=== PATIENT | female | born 1960 | race Caucasian/White ===

== ENCOUNTER 2020-08-23 04:14 | Inpatient (IN) | payer MEDICARE, MEDICAID ==
[2020-08-23] VITALS (426 sets, daily range): BP systolic 131–146; BP diastolic 85–111; PULSE 78–84; TEMP 97.2–98.1; O2SAT 89–100
[~2020-08-23] VITALS: Ht 165.1 cm; Wt 66.5 kg
[~2020-08-23 04:14] MED LIST: LAMICTAL 25MG T25 MG; PAXIL 10MG10 MG; PREDNISONE20 MG PO; PROAIR HFA0.09 MG/AC IH; TOPROL XL 25MG25 MG
[2020-08-23 05:46] LABS: BASO # 0.1 (0.0-0.2); BASO % 0.7 % (0.0-2.0); EOS # 0.3 (0.0-0.7); EOS % 2.3 % (0-4.0); GRAN # 7.8 (1.4-6.5); GRAN % 63.6 % (42.2-75.2); HEMATOCRIT 37.4 % (37.0-47.0); HEMOGLOBIN 12.4 g/dl (12.5-16.0); LYMPH % 24.2 % (20.0-51.0); MEAN CELL VOLUME 92 fl (80.0-100.0); MEAN CORPUSCULAR HEMOGLOBIN 30 pg (27.0-31.0); MEAN CORPUSCULAR HGB CONC 33 g/dl (33.0-37.0); MEAN PLATELET VOLUME 10.4 fl (7.4-10.4); MONO # 1.1 (0.1-0.6); MONO % 8.9 % (1.7-9.3); PLATELET COUNT 306 K/mm3 (130-400); RED BLOOD COUNT 4.08 M/mm3 (4.10-5.30)
[2020-08-23 05:55] LABS: ALBUMIN 3.9 gm/dL (3.5-5.0); BILIRUBIN,TOTAL 0.4 mg/dL (0.0-1.0); CALCIUM 9.4 mg/dL (8.4-10.2); CREATININE, serum 0.89 (0.52-1.25); POTASSIUM 3.7 mmol/L (3.4-5.0); TOTAL PROTEIN 6.6 gm/dL (6.4-8.2)
[2020-08-23 06:14] LABS: COLLECTION METHOD CLEAN CATCH
[2020-08-23 06:15] LABS: ACETAMINOPHEN < 10 ug/mL (10-30); SALICYLATE < 1.0 mg/dL; TROPONIN-I 0.062 ng/mL (0.000-0.035)
[2020-08-23 06:29] LABS: MUCOUS Present /lpf; PH 5 (5-8); URINE APPEARANCE Hazy; URINE BACTERIA None Seen /hpf; URINE BILIRUBIN Negative (NEGATIVE); URINE BLOOD Negative (NEGATIVE); URINE COLOR Yellow; URINE GLUCOSE Negative (NEGATIVE); URINE KETONE Negative (NEGATIVE); URINE LEUKOCYTE ESTERASE Trace (NEGATIVE); URINE NITRATE Negative (NEGATIVE); URINE PROTEIN(semi-quant) Negative (NEGATIVE); URINE RBC 0-2 /hpf; URINE UROBILINOGEN Negative (NEGATIVE); URINE WBC 20-50 /hpf
[2020-08-23 06:34] LABS: TRICYCLIC ANTIDEPRESS URINE NEGATIVE
[2020-08-23 11:38] LABS: ARTERIAL BLD GAS O2 SATURATION 98.1 % (92-100); ARTERIAL BLOOD GAS BASE EXCESS 6.9 (-2-2); ARTERIAL BLOOD GAS HCO3 31.6 meq/L (22-26); ARTERIAL BLOOD GAS PCO2 45.5 mmHg (35-45); ARTERIAL BLOOD GAS PO2 105.1 mmHg (80-100); ARTERIAL BLOOD GAS pH 7.46 (7.35-7.45)
--- NOTE | 2020-08-23 16:22 | NUR ---
marshmallow machine worker contacted patient's son, Fahad Gilbert #[phone] and confirmed that patient is and that she has 3 adult children. Fahad states he has a sister, Lester, and another sister, Brittany (that he hasn't spoken to in 13 years). Fahad states that he doesn't know where Brittany is or what her last name is. Worker attempted to contact Brittany, however, phone number did not work. Worker provided legal next of kin information, identifying patient's adult children as decisions makers, when patient cannot speak for herself. Patient is currently on a ventilator and cannot speak for herself. Fahad advised that he and his sisters are estranged from patient and that patient's brother, Chester Urias [phone] lives with patient and provides for her care. Worker explained that if patient's children do not want to be the decision makers, then a court process to appoint a guardian will need to be completed with payment from patient. Fahad states that he will reach out to his sister, Rebecca and Chester and discuss the above information. Worker provided emotional support and stressed that we want to support patient's family members and guide them through this difficult time. Worker will reach out to Fahad in the am on 08/24/2020 to discuss what direction the children want to proceed with. Fahad verbalized understanding that he and his sisters are currently decision makers.
--- NOTE | 2020-08-23 17:00 | NUR ---
None at this time, AIVS here for PICC placement
[2020-08-23 18:23] LABS: TROPONIN-I 0.244 ng/mL (0.000-0.035)
[2020-08-23] MEDS ORDERED: COMBIRESP IH (22:00)
[2020-08-23] MEDS ORDERED: ASPIRIN 81M81 MG/TA2 PO (22:01)
[2020-08-23] MEDS ORDERED: PROAIR HFA0.09 MG/AC IH (22:01)
[2020-08-23] MEDS ORDERED: PRILOSEC 20MG20 MG PO (22:01)
[2020-08-23] MEDS ORDERED: DINO-LIFE1 CTB PO (22:02)
[2020-08-23] MEDS ORDERED: 00186-0370-20 IH (22:03)
[2020-08-23] MEDS ORDERED: KAPSPARGO SPRIN25 MG PO (22:03)
[2020-08-23] MEDS ORDERED: DESYREL 100MG100 MG PO (22:03)
[2020-08-23] MEDS ORDERED: PAXIL 20MG20 MG PO (22:04)
[2020-08-23] MEDS ORDERED: ATARAX 25MG25 MG/TAB PO (22:04)
[2020-08-23] MEDS ORDERED: PAXIL40 MG PO (22:04)
[2020-08-23] MEDS ORDERED: LYRICA200 MG PO (22:04)
[2020-08-23] MEDS ORDERED: PLETAL 100MG T100 MG PO (22:05)
[2020-08-23] MEDS ORDERED: VIMPAT100 MG PO (22:05)
[2020-08-23] MEDS ORDERED: SEROQUEL 1100 MG/TAB PO (22:05)
[2020-08-24] VITALS (600 sets, daily range): BP systolic 123–151; BP diastolic 7–100; PULSE 72–103; TEMP 97.2–98.6; O2SAT 89–100
[2020-08-24 04:34] LABS: ARTERIAL BLD GAS O2 SATURATION 95.9 % (92-100); ARTERIAL BLD GAS TCO2 CT 30.2; ARTERIAL BLOOD GAS BASE EXCESS 4.7 (-2-2); ARTERIAL BLOOD GAS HCO3 28.9 meq/L (22-26); ARTERIAL BLOOD GAS PCO2 41.2 mmHg (35-45); ARTERIAL BLOOD GAS pH 7.46 (7.35-7.45)
[2020-08-24 05:23] LABS: BASO % 0.1 % (0.0-2.0); GRAN # 9.4 (1.4-6.5); GRAN % 84.9 % (42.2-75.2); HEMOGLOBIN 12.1 g/dl (12.5-16.0); LYMPH % 9.1 % (20.0-51.0); MEAN CELL VOLUME 89 fl (80.0-100.0); MEAN CORPUSCULAR HEMOGLOBIN 31 pg (27.0-31.0); MEAN CORPUSCULAR HGB CONC 34 g/dl (33.0-37.0); MEAN PLATELET VOLUME 10.4 fl (7.4-10.4); MONO # 0.6 (0.1-0.6); MONO % 5.4 % (1.7-9.3); PLATELET COUNT 268 K/mm3 (130-400); RED BLOOD COUNT 3.97 M/mm3 (4.10-5.30); REDCELL DISTRIBUTION WIDTH-CV 11.9 % (11.5-14.5)
[2020-08-24 05:28] LABS: HEMATOCRIT 35.2 % (37.0-47.0)
[2020-08-24 05:35] LABS: ALBUMIN 3.6 gm/dL (3.5-5.0); BILIRUBIN,TOTAL 0.3 mg/dL (0.0-1.0); CALCIUM 8.8 mg/dL (8.4-10.2); CREATININE, serum 0.72 (0.52-1.25); TOTAL PROTEIN 6.2 gm/dL (6.4-8.2)
[2020-08-24 05:36] LABS: POTASSIUM 2.9 mmol/L (3.4-5.0)
[2020-08-24 05:49] LABS: TROPONIN-I 0.107 ng/mL (0.000-0.035)
[2020-08-24 06:04] LABS: TSH w REFLEX 0.015 uIU/mL (0.465-4.680)
--- NOTE | 2020-08-24 09:30 | NUR ---
at bedside. added aspirin and metoprolol. No other interventions at this time.
--- NOTE | 2020-08-24 09:30 | NUR ---
at bedside. added more potassium and ordered replacement protocol.
--- NOTE | 2020-08-24 10:00 | NUR ---
Patient put on CPAP trial and sedation cut in half per Dr.Rich duffy.
[2020-08-24 11:26] LABS: ARTERIAL BLD GAS TCO2 CT 27.2; ARTERIAL BLOOD GAS BASE EXCESS 3.6 (-2-2); ARTERIAL BLOOD GAS HCO3 26.2 meq/L (22-26); ARTERIAL BLOOD GAS pH 7.52 (7.35-7.45)
--- NOTE | 2020-08-24 11:28 | NUR ---
ABG was good and patient tolerated CPAP trial. said to extubate. Patient was extubated and NG was removed. Patient placed on 3L NC and satting 97%. Patient is alert but is not oriented what so ever anf will not follow commands. She is restless and agitated, with incomprehensible speech.
--- NOTE | 2020-08-24 14:26 | NUR ---
social service worker contacted son, Fahad, and provided updates and that physician would attempt to call with updates as well. Fahad was appreciative of the call.
--- NOTE | 2020-08-24 19:56 | NUR ---
Received report from ANN Silva. All medications verified and all questions answered. Will resume care at this time.
--- NOTE | 2020-08-24 21:00 | NUR ---
Nurse notified by chargeMiriam RN, that patient was completly naked and sitting up in bed pulling at PICC line and peripheral lines. Patient became combative and began to kick, punch and yell at nurses. Patient is confused and unable to follow commands. Patient speech was clear but yelling out unintelligible phrases that do not relate to situation. hematologist oncologist contacted [facility] who placed orders for a precedex gtt to be started. hematologist oncologist then contacted warehouse operator and Dr. De Leon to confirm precedex gtt.
[2020-08-24 22:31] LABS: ARTERIAL BLD GAS O2 SATURATION 93.2 % (92-100); ARTERIAL BLD GAS TCO2 CT 30.1; ARTERIAL BLOOD GAS BASE EXCESS 5.2 (-2-2); ARTERIAL BLOOD GAS HCO3 28.9 meq/L (22-26); ARTERIAL BLOOD GAS PCO2 39.2 mmHg (35-45); ARTERIAL BLOOD GAS PO2 62.8 mmHg (80-100); ARTERIAL BLOOD GAS pH 7.49 (7.35-7.45)
[2020-08-25] VITALS (698 sets, daily range): BP systolic 122–175; BP diastolic 68–107; PULSE 62–83; TEMP 97.4–98.1; O2SAT 76–100
[2020-08-25 05:24] LABS: GRAN # 10.8 (1.4-6.5); GRAN % 85.9 % (42.2-75.2); LYMPH # 1.2 (1.2-3.4); LYMPH % 9.3 % (20.0-51.0); MEAN CELL VOLUME 90 fl (80.0-100.0); MEAN CORPUSCULAR HEMOGLOBIN 30 pg (27.0-31.0); MEAN CORPUSCULAR HGB CONC 33 g/dl (33.0-37.0); MEAN PLATELET VOLUME 10.4 fl (7.4-10.4); MONO # 0.5 (0.1-0.6); MONO % 4.2 % (1.7-9.3); PLATELET COUNT 250 K/mm3 (130-400); RED BLOOD COUNT 3.73 M/mm3 (4.10-5.30); REDCELL DISTRIBUTION WIDTH-CV 12.3 % (11.5-14.5)
[2020-08-25 05:33] LABS: HEMATOCRIT 33.6 % (37.0-47.0)
[2020-08-25 05:37] LABS: CALCIUM 9.2 mg/dL (8.4-10.2); CREATININE, serum 0.74 (0.52-1.25); POTASSIUM 4.1 mmol/L (3.4-5.0)
--- NOTE | 2020-08-25 05:39 | NUR ---
Attempted to weigh patient via bedscale in room. Bedscale not working. Will pass on to day shift.
[2020-08-25] MEDS ORDERED: LAMICTAL 100MG100 MG PO (10:44)
--- NOTE | 2020-08-25 11:52 | NUR ---
The patient has been extubated. She remains confused and agitated. ICU Director reports that they have not been able to get in contact with the patient's son, Fahad. SW contacted Fhaad (ph#[phone]). Fahad reports that him and his siblings are still agreeable to be the patient's decision makers and he was agreeable for SW to transfer the call to the ICU to talk to the patient's RN. ERMA did this and updated ICU Director.
--- NOTE | 2020-08-25 20:00 | NUR ---
PATIENT WILL SCREAM FOR HELP OR MOM, ASKED ABOUT GIVING HER ORAL MED AND SHE TOOK ORALLY WITH SMALL PROTION OF WATER, CIWA SCORE 4 TO 6 ADMINISTRATION OF ATIVAN REGULAR
[2020-08-26] VITALS (647 sets, daily range): BP systolic 115–168; BP diastolic 70–113; PULSE 60–91; TEMP 97.5–98.5; O2SAT 55–100
[2020-08-26 05:23] LABS: BASO % 0.1 % (0.0-2.0); EOS % 0.1 % (0-4.0); GRAN # 6.2 (1.4-6.5); HEMOGLOBIN 11.3 g/dl (12.5-16.0); LYMPH # 2.9 (1.2-3.4); LYMPH % 28.2 % (20.0-51.0); MEAN CELL VOLUME 89 fl (80.0-100.0); MEAN CORPUSCULAR HEMOGLOBIN 30 pg (27.0-31.0); MEAN CORPUSCULAR HGB CONC 34 g/dl (33.0-37.0); MEAN PLATELET VOLUME 10.4 fl (7.4-10.4); MONO # 1.1 (0.1-0.6); MONO % 10.4 % (1.7-9.3); PLATELET COUNT 218 K/mm3 (130-400); RED BLOOD COUNT 3.81 M/mm3 (4.10-5.30)
[2020-08-26 05:29] LABS: HEMATOCRIT 33.7 % (37.0-47.0)
[2020-08-26 05:35] LABS: CALCIUM 8.9 mg/dL (8.4-10.2); CREATININE, serum 0.75 (0.52-1.25); POTASSIUM 3.7 mmol/L (3.4-5.0)
--- NOTE | 2020-08-26 10:50 | NUR ---
1025- PT is very agitated, crying out, pushing staff and unable to follow commands. 1030- Hospitalist notified. 1032- PT lays down and is no longer verbal. PTs pupils are no longer reactive. PTs eyes are moving back and forth. Service Representative bedside. PTs O2 saturation is in the 70s. Oxymask is placed and RT called. Orders received for intubation. [facility] notified. 1037-PT given 2mg ativan. RT bedside 1043- Second dose of ativan given. DRYWALL BOARDHANGER bedside. 1044- Time out for inutbation. Medications given per DRYWALL BOARDHANGER. Please see eMAR. 1046- ET-tube in place. Color change noted. Lung sounds auscultated bilaterally. PT O2 sat at 98%.
--- NOTE | 2020-08-26 11:48 | NUR ---
Patient intubated and paralytic used. EEG will be completed Sunday. Shekhar Malcolm, INSTRUCTIONAL SYSTEMS DESIGN CONSULTANT
[2020-08-26 11:55] LABS: ARTERIAL BLD GAS O2 SATURATION 98.7 % (92-100); ARTERIAL BLD GAS TCO2 CT 24.2; ARTERIAL BLOOD GAS BASE EXCESS -1.7 (-2-2); ARTERIAL BLOOD GAS PCO2 39.1 mmHg (35-45); ARTERIAL BLOOD GAS PO2 160.4 mmHg (80-100); ARTERIAL BLOOD GAS pH 7.39 (7.35-7.45)
[2020-08-27] VITALS (546 sets, daily range): BP systolic 87–150; BP diastolic 53–90; PULSE 67–82; TEMP 97.3–98.3; O2SAT 76–100
[2020-08-27 06:00] LABS: ARTERIAL BLD GAS O2 SATURATION 98.3 % (92-100); ARTERIAL BLD GAS TCO2 CT 25.6; ARTERIAL BLOOD GAS BASE EXCESS 0.8 (-2-2); ARTERIAL BLOOD GAS HCO3 24.5 meq/L (22-26); ARTERIAL BLOOD GAS PCO2 36.2 mmHg (35-45); ARTERIAL BLOOD GAS PO2 110.4 mmHg (80-100); ARTERIAL BLOOD GAS pH 7.45 (7.35-7.45)
--- NOTE | 2020-08-27 08:11 | NUR ---
PT ATTEMPTING TO CRAWL OUT OF BED AND SELF-EXTUBATE, ON CURRENT DOSES.
[2020-08-27 08:44] LABS: BASO % 0.1 % (0.0-2.0); GRAN # 6.1 (1.4-6.5); GRAN % 83.8 % (42.2-75.2); HEMOGLOBIN 10.7 g/dl (12.5-16.0); LYMPH # 0.8 (1.2-3.4); LYMPH % 11.2 % (20.0-51.0); MEAN CELL VOLUME 89 fl (80.0-100.0); MEAN CORPUSCULAR HEMOGLOBIN 31 pg (27.0-31.0); MEAN CORPUSCULAR HGB CONC 35 g/dl (33.0-37.0); MEAN PLATELET VOLUME 10.6 fl (7.4-10.4); MONO # 0.3 (0.1-0.6); MONO % 4.5 % (1.7-9.3); PLATELET COUNT 203 K/mm3 (130-400); RED BLOOD COUNT 3.41 M/mm3 (4.10-5.30); REDCELL DISTRIBUTION WIDTH-CV 11.9 % (11.5-14.5)
[2020-08-27 08:45] LABS: HEMATOCRIT 30.5 % (37.0-47.0)
[2020-08-27 08:56] LABS: CALCIUM 8.2 mg/dL (8.4-10.2); CREATININE, serum 0.68 (0.52-1.25); POTASSIUM 3.6 mmol/L (3.4-5.0)
[2020-08-28] VITALS (886 sets, daily range): BP systolic 126–192; BP diastolic 76–110; PULSE 64–87; TEMP 97.5–98.3; O2SAT 84–100
[2020-08-28 05:38] LABS: ARTERIAL BLD GAS O2 SATURATION 95.4 % (92-100); ARTERIAL BLD GAS TCO2 CT 24.3; ARTERIAL BLOOD GAS BASE EXCESS -1.4 (-2-2); ARTERIAL BLOOD GAS HCO3 23.1 meq/L (22-26); ARTERIAL BLOOD GAS PCO2 38.2 mmHg (35-45); ARTERIAL BLOOD GAS PO2 81.2 mmHg (80-100)
[2020-08-28 06:40] LABS: GRAN % 83.9 % (42.2-75.2); HEMATOCRIT 31.5 % (37.0-47.0); HEMOGLOBIN 10.4 g/dl (12.5-16.0); LYMPH # 0.6 (1.2-3.4); LYMPH % 10.7 % (20.0-51.0); MEAN CELL VOLUME 90 fl (80.0-100.0); MEAN CORPUSCULAR HEMOGLOBIN 30 pg (27.0-31.0); MEAN CORPUSCULAR HGB CONC 33 g/dl (33.0-37.0); MEAN PLATELET VOLUME 10.5 fl (7.4-10.4); MONO # 0.3 (0.1-0.6); MONO % 5.1 % (1.7-9.3); PLATELET COUNT 199 K/mm3 (130-400); RED BLOOD COUNT 3.49 M/mm3 (4.10-5.30); REDCELL DISTRIBUTION WIDTH-CV 12.2 % (11.5-14.5)
[2020-08-28 06:49] LABS: CALCIUM 8.4 mg/dL (8.4-10.2); CREATININE, serum 0.81 (0.52-1.25)
--- NOTE | 2020-08-28 09:24 | NUR ---
Increased patients tube feed rate to 30ml.
--- NOTE | 2020-08-28 10:25 | NUR ---
Sedation cut in half for CPAP trial. While on CPAP trial patient kept having apneic spells so vent mode was turned back to AC and sedation was turned all the way off.
--- NOTE | 2020-08-28 10:45 | NUR ---
PAtient back on CPAP mode and tolerating well. will draw ABG at noon
[2020-08-28 12:10] LABS: ARTERIAL BLD GAS O2 SATURATION 95.5 % (92-100); ARTERIAL BLOOD GAS BASE EXCESS -3.8 (-2-2); ARTERIAL BLOOD GAS HCO3 21.7 meq/L (22-26); ARTERIAL BLOOD GAS PCO2 41.1 mmHg (35-45); ARTERIAL BLOOD GAS PO2 84.8 mmHg (80-100); ARTERIAL BLOOD GAS pH 7.34 (7.35-7.45)
--- NOTE | 2020-08-28 12:30 | NUR ---
Patient extubated per . ABG looked good. Patient put on 2L NC and satting good at 96%. restraints off and mittens were placed and patient started on precedex gtt per . Bed alarm on. Patient is not following commands but moving all around in bed.
--- NOTE | 2020-08-28 16:36 | NUR ---
Fahad, patients son, called for updates. He was updated on todays plan of care and that patient was extubated. He did not have any questions after.
--- NOTE | 2020-08-28 17:30 | NUR ---
Sedation vacation was initated by cutting precedex in half. Patient became more alert. However, patient is not oriented and or answering questions appropriately. She is not following commands. In reponse to asking if she knew where she was she said "[facility]" while yelling it. When asked what her name was she yelled "fuck you". Patient then became restless and was trying to climb out of bed so precedex was turned back up.
[2020-08-29] VITALS (653 sets, daily range): BP systolic 129–175; BP diastolic 82–108; PULSE 61–80; TEMP 97.4–98.1; O2SAT 74–100
[2020-08-29 05:32] LABS: GRAN # 7.9 (1.4-6.5); GRAN % 83.9 % (42.2-75.2); LYMPH # 0.8 (1.2-3.4); LYMPH % 8.7 % (20.0-51.0); MEAN CELL VOLUME 89 fl (80.0-100.0); MEAN CORPUSCULAR HEMOGLOBIN 30 pg (27.0-31.0); MEAN CORPUSCULAR HGB CONC 34 g/dl (33.0-37.0); MONO # 0.6 (0.1-0.6); MONO % 6.7 % (1.7-9.3); PLATELET COUNT 206 K/mm3 (130-400); RED BLOOD COUNT 3.66 M/mm3 (4.10-5.30); REDCELL DISTRIBUTION WIDTH-CV 12.1 % (11.5-14.5)
[2020-08-29 05:33] LABS: HEMATOCRIT 32.7 % (37.0-47.0)
[2020-08-29 05:46] LABS: CALCIUM 8.9 mg/dL (8.4-10.2); CREATININE, serum 0.71 (0.52-1.25); POTASSIUM 3.7 mmol/L (3.4-5.0)
--- NOTE | 2020-08-29 08:00 | NUR ---
PATIENT LYING IN BED ON PRECEDEX GTT. SHE IS OCCASIONALLY TRYING TO GET OUT OF BED AND CUSSING AT STAFF THEY TRY TO HELP HER BACK TO BED.
--- NOTE | 2020-08-29 11:00 | NUR ---
DR. RODRIGUEZ IN TO SEE PATIENT. HE ORDERS SCHEDULED HALDOL TO SEE IF WE CAN WEAN OFF THE PRECEDEX AND HELP PATIENT BE MORE AGREEABLE TO TAKE HER PO PSYCH MEDS.
--- NOTE | 2020-08-29 15:00 | NUR ---
ATTEMPTING TO WEAN PRECEDEX AFTER ADMINISTERING SCHEDULED HALDOL. PATIENT SEEMS TO BE TOLERATING IT WELL, BUT REMAINS CONFUSED AND HALLUCINATORY. BED ALARM ACTIVATED SHE IS STILL TRYING TO GET UP WITHOUT HELP.
--- NOTE | 2020-08-29 19:30 | NUR ---
Received report from ANN Lee. All medications verified and all questions answered. Patient resting in bed, all VS WNL. Will resume care at this time.
--- NOTE | 2020-08-29 22:00 | NUR ---
Spoke with Tonja Pedro, friend of patient, who called ICU nurses station and gave patient privacy code. Nurse gave update on patient status. Patient friend stated he was appreciative and would call back later tomorrow morning.
--- NOTE | 2020-08-29 22:50 | NUR ---
PATIENT IS CALM AND LAYING IN BED RESTING. VS WNL. PATIENT SLEEPS BETWEEN DISTURBANCES, BUT WAKES EASILY. PRECEDEX PUT ON STANDY.
--- NOTE | 2020-08-29 23:57 | NUR ---
Nurse heard low SPO2 alarm sounding in patient room and noticed patient had blood all over the gown and bed, patient stated "I'm not doing so hot." Nurse noted cap had come off purple port on PICC line. Nurse notified Charge, RN who helped nurse bath patient and change sheets. Nurse notified RAJESH Pinon who ordered H&H to be drawn. New cap placed on PICC line and new marimar wrap wrapped around patient arm. VS taken and WNL. Patient is alert and restless but able to follow simple commands. Patient is confused and unable to answer questions appropriately. Awaiting results on H&H.
[2020-08-30] VITALS (293 sets, daily range): BP systolic 120–178; BP diastolic 68–102; PULSE 68–93; TEMP 97.5–98.2; O2SAT 76–99
[2020-08-30 00:09] LABS: HEMATOCRIT 29.7 % (37.0-47.0)
--- NOTE | 2020-08-30 00:14 | NUR ---
Notified Kathrin, HOSPICE MUSIC THERAPIST of results of patients H&H. No new orders at this time
--- NOTE | 2020-08-30 04:27 | NUR ---
PRECEDEX GTT PLACED ON STANDBY
[2020-08-30 05:04] LABS: BASO % 0.1 % (0.0-2.0); EOS # 0.1 (0.0-0.7); EOS % 0.8 % (0-4.0); GRAN # 5.3 (1.4-6.5); GRAN % 58.2 % (42.2-75.2); LYMPH # 2.7 (1.2-3.4); LYMPH % 29.4 % (20.0-51.0); MEAN CELL VOLUME 89 fl (80.0-100.0); MEAN CORPUSCULAR HGB CONC 33 g/dl (33.0-37.0); MEAN PLATELET VOLUME 10.6 fl (7.4-10.4); MONO % 11.1 % (1.7-9.3); PLATELET COUNT 175 K/mm3 (130-400); RED BLOOD COUNT 3.36 M/mm3 (4.10-5.30); REDCELL DISTRIBUTION WIDTH-CV 12.1 % (11.5-14.5)
[2020-08-30 05:11] LABS: HEMATOCRIT 29.9 % (37.0-47.0); HEMOGLOBIN 9.9 g/dl (12.5-16.0); MEAN CORPUSCULAR HEMOGLOBIN 29 pg (27.0-31.0)
[2020-08-30 05:27] LABS: ALBUMIN 2.9 gm/dL (3.5-5.0); BILIRUBIN,TOTAL 0.9 mg/dL (0.0-1.0); CALCIUM 7.3 mg/dL (8.4-10.2); CREATININE, serum 0.65 (0.52-1.25); MAGNESIUM 1.7 mg/dL (1.6-2.3); PHOSPHOROUS 2.3 mg/dL (2.5-4.5); TOTAL PROTEIN 5.2 gm/dL (6.4-8.2)
[2020-08-30 05:34] LABS: PRE ALBUMIN 18.7 mg/dL (17.6-36.0)
[2020-08-30 05:42] LABS: POTASSIUM 2.6 mmol/L (3.4-5.0)
--- NOTE | 2020-08-30 06:00 | NUR ---
Spoke with Dr. Don in regards to patients blood glucose reading of 58 [facility] morning lab draws. A recheck via glucometer showed patients blood glucose level 91. On initial call with Dr. Don it was discussed that if BG was still low that D50 would be administered. No orders were put in for D50 and with a BG reading of 91 and the patient starting on D5NS at 100mls/hr for fluids D50 was not given.
--- NOTE | 2020-08-30 06:04 | NUR ---
Received call from Stephanie in the lab stating patient had a critcal potassium level of 2.6. Nurse called MARTHA and received orders from Dr. Street for 20MEQ of potassium to be given IV. Nurse also noted patient had a blood glucose level of 58 from 0500 morning lab draws. Nurse reassessed patients blood sugar using glucometer and blood glucose was 91.
--- NOTE | 2020-08-30 06:15 | NUR ---
Spoke with MARTHA and relayed patients accucheck blood glucose reading of 91. Received orders from Dr. Leyva to place patient on D5NS.
--- NOTE | 2020-08-30 08:00 | NUR ---
PATIENT RESTLESS AND INCONTINENT OF STOOL MULITPLE TIMES TIME MORNING. SHE NEEDS FREQUENT REORIENTATION AND REDIRECTING. PATIENT SPEAKS CLEARLY, BUT IN A CONFUSED MANNER.
--- NOTE | 2020-08-30 12:25 | NUR ---
Patient to room 313 by wheelchair from ICU. Patient assisted to the bed and repositioned for comfort. Alert, but confused and trying to get out of bed. IV CDI, fluids infusing. Vizcaino dependent drainage, clear yellow. Call light within reach, Bed alarm on door open. Call light within reach
--- NOTE | 2020-08-30 17:58 | NUR ---
Patient has been shouting out Allegra and Carebear and trying to get out of bed. Pulled stat lock to saravia x2. Mitts placed on patient to help keep saravia intact. Nursing staff reorienting patient as needed and assisting with repositioning. Saravia dependent drainage clear yellow. CMS WNL with Mitts on. Call light within reach. Bed alarm on and door open
[2020-08-30 21:09] LABS: CALCIUM 8.8 mg/dL (8.4-10.2); CREATININE, serum 0.78 (0.52-1.25); POTASSIUM 3.3 mmol/L (3.4-5.0)
--- NOTE | 2020-08-30 21:37 | NUR ---
Pt refuses full assessment of BS and SpO2
[2020-08-31] VITALS (9 sets, daily range): BP systolic 101–143; BP diastolic 60–90; PULSE 72–85; TEMP 97.3–98.7
[2020-08-31 07:56] LABS: CREATININE, serum 0.82 (0.52-1.25); MAGNESIUM 2.1 mg/dL (1.6-2.3); POTASSIUM 3.1 mmol/L (3.4-5.0)
--- NOTE | 2020-08-31 09:05 | NUR ---
(Late Entry) On 08/30/19 Liquor Runner collaborated with Hospitalist who advised patient would need rodo psych placement. SW faxed referrals to [facility], [facility], [facility], and [facility].
--- NOTE | 2020-08-31 14:09 | NUR ---
Renal Technician faxed referrals to the following rodo-psych facilites: [facility] [place], and [facility].
--- NOTE | 2020-08-31 14:12 | NUR ---
Farm Equipment Operator attempted to contact the patient's son, Fahad to introduce oneself and provide an update. This SW could not leave a message since the mailbox was full.
--- NOTE | 2020-08-31 16:00 | NUR ---
The patient's son, Fahad contacted this Robotics Testing Technician. SW provided patient update. Fahad had no questions at this time.
[2020-09-01] VITALS (7 sets, daily range): BP systolic 85–139; BP diastolic 50–88; PULSE 63–83; TEMP 97.7–98.2
--- NOTE | 2020-09-01 01:44 | NUR ---
Patient appears very confused tonight. Patient trying to get out of bed and keeps pulling her saravia catheter. PRN Ativan given at 20:03 pm for restlessness. Scheduled meds given per OCT. Meds crushed and mixed in chocolate pudding. Patient took medications without difficulty. Right upper arm PICC site has no s/s of complications. Saravia catheter draining clear yellow urine. Call light within reach. Doors left open for close monitor of behavior.
--- NOTE | 2020-09-01 07:20 | NUR ---
Patient slept well through the night. No acute distress noted. Call light within reach.
[2020-09-01 07:50] LABS: HEMATOCRIT 39.2 % (37.0-47.0); MEAN CELL VOLUME 90 fl (80.0-100.0); MEAN CORPUSCULAR HGB CONC 32 g/dl (33.0-37.0); MEAN PLATELET VOLUME 11.2 fl (7.4-10.4); RED BLOOD COUNT 4.38 M/mm3 (4.10-5.30); REDCELL DISTRIBUTION WIDTH-CV 12.3 % (11.5-14.5)
[2020-09-01 07:57] LABS: CREATININE, serum 0.93 (0.52-1.25); MAGNESIUM 2.2 mg/dL (1.6-2.3); POTASSIUM 4.6 mmol/L (3.4-5.0)
--- NOTE | 2020-09-01 07:58 | NUR ---
Patient laying in bed, can be seen moving and draping legs over the rail. Alert to name and , but confused on all other questions. VSS. IV CDI. Denies pain and discomfort. Call light within reach. Bed alarm on. Door open
[2020-09-01 08:16] LABS: MEAN CORPUSCULAR HEMOGLOBIN 29 pg (27.0-31.0)
[2020-09-01 08:18] LABS: HEMOGLOBIN 12.7 g/dl (12.5-16.0); PLATELET COUNT 320 K/mm3 (130-400)
--- NOTE | 2020-09-01 10:40 | NUR ---
Chairman & Ceo received a message from Gardenia at [facility] who advised they would have to decline referral due to medical issues.
--- NOTE | 2020-09-01 12:55 | NUR ---
Vizcaino catheter removed. Pericare provided before and after removal. Tip intact, patient tolerated well. Brief changed and patient repositioned for comfort. Patient instructed to call nursing staff when needing to void. Call light within reach. Bed alarm on
--- NOTE | 2020-09-01 13:50 | NUR ---
Denia from [facility] has declined the patient due to history of drug use. [facility] has declined due to the patient not having a designated DPOA-HC or guardian. [facility] is reviewing the referral but is requesting the patient have DPOA-HC or guardianship. Chastity with [facility] and she will have her team review the referral then inform ERMA. Chastity states the patient will need to have a DPOA-HC or guardian. ERMA contacted Justyna with the [facility] in [place]. She states they are still reviewing the referral. Supervisor Locomotive contacted the patient's son, Fahad to provide an update. He was interested in being appointed guardian and was wondering if the [facility] legal team would assign him as guardian. ERMA contacted the patient's friend, Tonja Pedro. He reports that he used to assist the patient to her appointments. He states that her PCP in [place] was Dr. Clint Lee at [facility] in [facility] #[phone]. ERMA attempted to contact Dr. Lee, left message. ERMA contacted the patient's brother, Chester to provide an update. ERMA collaborated the above information with the patient's nurse.
--- NOTE | 2020-09-01 17:32 | NUR ---
Patient has tried to get out of been throughout the shift and nursing staff reorienting the patient. Patient compliant and listens, then will try and get out of bed again. Alert to name, and confused. VSS. IV CDI. Patient assisted with eating meals. Call light within reach. Bed alarm on
--- NOTE | 2020-09-01 18:15 | NUR ---
Bladder scanned patient 439ml in the bladder. Called Mara MENA, and ordered saravia to be placed back in.
--- NOTE | 2020-09-01 18:29 | NUR ---
Vizcaino placed, 10 ml water in balloon. Pericare provided before and after insertion. Brief placed on the patient. Patient repositioned for comfort. Call light within reach. Bed alarm on. Door open
--- NOTE | 2020-09-02 01:40 | NUR ---
Patient resting in bed with eyes closed. Patient opens eyes to verbal stimulation. Denies any pain or discomfort. Denies SOB or dyspnea. Vizcaino catheter in place and draining clear yellow urine. Right upper arm PICC site has no s/s of complications. Scheduled meds given per OCT. Patient took medications without difficulty. Call light within reach. Patient denies any needs at this time.
[2020-09-02 03:21] VITALS: BP 90/54; PULSE 67; TEMP 97.8
--- NOTE | 2020-09-02 05:53 | NUR ---
Patient slept well through the night. Awake at 05:30 am and appears confused. Moving around her arms in the air, patient states," I am driving the car." Call light within reach.
[2020-09-02 07:18] VITALS: BP 109/66; PULSE 80; TEMP 98.2
[2020-09-02 07:55] LABS: HEMATOCRIT 37.4 % (37.0-47.0); MEAN CELL VOLUME 92 fl (80.0-100.0); MEAN CORPUSCULAR HEMOGLOBIN 30 pg (27.0-31.0); MEAN CORPUSCULAR HGB CONC 32 g/dl (33.0-37.0); MEAN PLATELET VOLUME 11.5 fl (7.4-10.4); PLATELET COUNT 286 K/mm3 (130-400); RED BLOOD COUNT 4.05 M/mm3 (4.10-5.30); REDCELL DISTRIBUTION WIDTH-CV 12.5 % (11.5-14.5)
[2020-09-02 08:08] LABS: CALCIUM 9.2 mg/dL (8.4-10.2); CREATININE, serum 1.15 (0.52-1.25); POTASSIUM 3.6 mmol/L (3.4-5.0)
--- NOTE | 2020-09-02 09:22 | NUR ---
Pt assessment complete. Pt is sitting up in bed upon entry, she is alert but oriented to self only. She denies pain. She answers questions appropriately, but does occasionally have confusing speech that is irrelevant to situation. No SOB, currently on RA. Herve FIELD. Pt assisted up to the chair this morning, she states she is tired of laying in bed.
--- NOTE | 2020-09-02 10:01 | NUR ---
Pathologist Assistant staffed with the patient's nurse regarding the patient's mental status. She states she is not completely oriented. ERMA met with the patient. The patient was able to answer her name. When asked if she had any children she stated "no." ERMA then asked if she had a son named Fahad, she answered "yes." SW asked the patient if she understood what a durable power of compliance attorney for healthcare was used for. The patient answered, "does it have candy." ERMA contacted Dr. Uli Rice regarding the patient and a screen for compentency. Dr. Rice was with at client at this time, left message. ERMA collaborated the above the team.
[2020-09-02 11:05] VITALS: BP 115/61; PULSE 71; TEMP 98.2
--- NOTE | 2020-09-02 14:49 | NUR ---
Vizcaino catheter removed at this time. Balloon intact. Pt continues to have confused speech, words are comprehendable but sentances do not make sense. Fall precautions in place.
--- NOTE | 2020-09-02 16:01 | NUR ---
Advertising Internship contacted the patient's son, Fahad to discuss the guardianship. Fahad is agreeable to guardianship and conservatorship for the patient. SW contacted the patient's friend, Tonja Pedro regarding DPOA-HC. Tonja states that he and the patient did discussed completing DPOA-HC, but never completed any forms. The legal team to get involved to start guardianship paperwork. SW gave a blank Report of Examination and Evaluation to hospitalist to complete. Puja from Dr. Mart's office contacted this SW. Dr. Mart will be combination welder apprentice this Sunday, 09/04. A new referral to be sent. ERMA collaborated the above information with the patient's nurse.
--- NOTE | 2020-09-02 18:58 | NUR ---
Pt continued to be confused and impulsive. Pleasant and not combative. Unable to follow commands or perform ADL's independently. Fall precautions in place.
[2020-09-02 20:01] VITALS: BP 101/62; PULSE 66; TEMP 98.6
[2020-09-02 23:33] VITALS: BP 92/51; PULSE 83; TEMP 98.1
--- NOTE | 2020-09-03 02:03 | NUR ---
Patient laying in bed resting upon enter the room. Patient opens eyes upon calling her name. Patient confused and not oriented. No s/s pain, SOB or dyspnea noted. Right upper arm PICC site has no s/s of complications. Scheduled meds given per OCT. Crushed meds in applesauce and offered. Patient took medications without difficulty. Call light within reach. Will continue to monitor.
[2020-09-03 05:18] VITALS: BP 98/63; PULSE 73; TEMP 98
--- NOTE | 2020-09-03 06:33 | NUR ---
Patient slept well throughout the night. Brief dry and clean. Bladder scan done this morning with 306ml urine residual noted. No acute distress noted. Will give report to day shift nurse.
[2020-09-03 07:46] VITALS: BP 100/54; PULSE 76; TEMP 97.7
--- NOTE | 2020-09-03 10:11 | NUR ---
Assessment complete. Patient attempting to get out of bed at time of assessment stating "I need to go have a smoke". After reorienting pt multiple times she became frustrated and angry and stated she was going to hit me if I did not let her go smoke. PRN ativan was administered to the patient at this time. Will continue to monitor. Fall precautions are in place. Call light is in reach.
--- NOTE | 2020-09-03 11:09 | NUR ---
On 09/02 referrals were faxed to [facility], [facility], [facility], [facility] and to [facility] reports they cannot accept the patient. Sabine from [facility] reports they cannot meet the patient's needs.
[2020-09-03 12:00] VITALS: BP 101/66; PULSE 78; TEMP 97.9
--- NOTE | 2020-09-03 16:49 | NUR ---
Retort Press Operator completed the guardianship questionnaire and emailed it to Mr. Mendez and Mr. Mohr. SW will send the report of examination and evaluation as soon as it is completed by hospitalist. The patient's son, Fahad contacted this Retort Press Operator. He inquired about sending referrals to facilities near his home in [place], [place]. SW faxed referrals to [facility] in [place] and to [facility] in [place]. ERMA contacted both facilities to inform them of the referrals.
--- NOTE | 2020-09-03 18:21 | NUR ---
Patient was not pleasant today despite reorientation and repositioning multiple times through the day. She would become angry when requested to stay in bed to make sure she did not fall. PRN ativan was given twice. Patient slept on an off. At end of shift she became combative and continued to be verbally agressive. Continuing to monitor. Call light is in reach.
--- NOTE | 2020-09-03 20:00 | NUR ---
Report received, assumed care for fast food shift supervisor. Assessment complete. A&O to self only-very confused converstaion-talking to people not in room. No s/s of pain or discomfort. HS meds given crushed in apple sauce-tolerated well. Plan of care discussed for this shift to include HS meds/calling for questions/concerns. Does not comprehend but call light in in reach and bed alarm is on. PICC to right upper arm flushes without difficulty. Call light in reach. Will monitor.
--- NOTE | 2020-09-03 22:00 | NUR ---
Patient very confused yelling out and talking to people who are not in the room. Is very combative and tryign to climb over bedrails. Ativan given slow IV push per order. Will monitor.
[2020-09-04 00:58] VITALS: BP 110/68; PULSE 62; TEMP 97.8
[2020-09-04 04:41] VITALS: BP 104/58; PULSE 68; TEMP 97.8
--- NOTE | 2020-09-04 04:57 | NUR ---
Rested better later this shift. Did receive one dose of ativan at 2200 due to agitation/combative with staff. Tolerated HS meds crushed in applesauce. Was A&O to self-very confused converstaion-at times speaking to people not there and picking things out of the air. Was repositioned [id number] of urine-bed bath given by PCT. No current s/s of distress noted. Call light in reach/bed alarm on. Will monitor.
[2020-09-04 08:00] VITALS: BP 121/79; PULSE 88; TEMP 98
--- NOTE | 2020-09-04 08:19 | NUR ---
Patient trying to get out of bed, nurse in the room to reorient the patient and to reposition in bed. Confused and not A&O. VSS. IV CDI. Patient incontinent of urine, nurse changed the patient. No further needs expressed from the patient. Call light within reach. Bed alarm on. Door open
[2020-09-04 08:54] LABS: CALCIUM 9.7 mg/dL (8.4-10.2); CREATININE, serum 1.11 (0.52-1.25); MAGNESIUM 2.4 mg/dL (1.6-2.3)
[2020-09-04 12:00] VITALS: BP 92/70; PULSE 86; TEMP 97.8
[2020-09-04 16:00] VITALS: BP 93/66; PULSE 80; TEMP 98.4
--- NOTE | 2020-09-04 17:32 | NUR ---
Patient had an uneventful day. Tried to get out of bed several times, nursing staff reorienting the patient. Patient spent most of the day resting. Nursing staff assisting with feeding and repositioning as needed. Confused today and not A&O. VSS. IV CDI. Call light within reach. Bed alarm on and door left open
--- NOTE | 2020-09-04 20:12 | NUR ---
Report received, assumed care for oyster shipper. Assessment complete. VS stable. Confused conversation. Responds to name but talks to people who are not present. HS meds given crushed in pudding. Calm this evening compared to earlier in shift. Plan of care discussed but does not comprehend. Repositioned in bed with pillow support to right side. HOB elevated 30 degrees. Samantha care complete-incontinent of urine. No s/s of distress noted. Call light in reach/bed alarm on. Will monitor.
[2020-09-04 20:19] VITALS: BP 97/64; PULSE 72; TEMP 98.1
--- NOTE | 2020-09-04 23:44 | NUR ---
Has become very agitated and combative with staff-cursing and trying to hit. Ativan given per dr order. Repositioned in bed with pillow support to left side. Call light in reach/bed alarm on. Will monitor.
[2020-09-05 00:53] VITALS: BP 98/68; TEMP 98.2
[2020-09-05 04:34] VITALS: BP 91/67; PULSE 72; TEMP 97.8
--- NOTE | 2020-09-05 05:19 | NUR ---
Slept most of this shift. Did get combative/agitated x1-received ativan at this time. Repositioned at this time-incontinent of urine-romeo care provided. No s/s of pain noted. VS remained stable. Tolerated HS meds crushed in pudding. Attempt made at beginning of shift to feed dinner tray. Ate approx 25% prior to spitting food out. Encouraged fluid intake. Call light in reach/bed alarm on. Will monitor.
[2020-09-05 07:26] VITALS: BP 91/75; PULSE 74; TEMP 98.4
--- NOTE | 2020-09-05 08:00 | NUR ---
Patient sleeping, easily awakened with verbal command. Alert to name and confused. Cannot keep eyes open and refusing to eat. VSS. IV CDI. Patient incontinent of urine, nurse assisted with changing the patient and reposition for comfort. Call light within reach. Bed alarm on and door left open
[2020-09-05 12:00] VITALS: BP 116/63; PULSE 97; TEMP 97.8
[2020-09-05 12:08] LABS: ARTERIAL BLD GAS O2 SATURATION 93.3 % (92-100); ARTERIAL BLD GAS TCO2 CT 27.5; ARTERIAL BLOOD GAS BASE EXCESS 0.8 (-2-2); ARTERIAL BLOOD GAS HCO3 26.1 meq/L (22-26); ARTERIAL BLOOD GAS PCO2 44.3 mmHg (35-45); ARTERIAL BLOOD GAS PO2 69.4 mmHg (80-100); ARTERIAL BLOOD GAS pH 7.39 (7.35-7.45)
[2020-09-05 15:18] LABS: ALBUMIN 3.8 gm/dL (3.5-5.0); BILIRUBIN,TOTAL 0.6 mg/dL (0.0-1.0); CALCIUM 9.4 mg/dL (8.4-10.2); CREATININE, serum 2.1 (0.52-1.25); POTASSIUM 4.5 mmol/L (3.4-5.0); TOTAL PROTEIN 6.7 gm/dL (6.4-8.2)
[2020-09-05 15:25] LABS: BASO # 0.1 (0.0-0.2); BASO % 0.6 % (0.0-2.0); EOS # 0.2 (0.0-0.7); EOS % 2.1 % (0-4.0); GRAN # 4.8 (1.4-6.5); GRAN % 47.2 % (42.2-75.2); HEMATOCRIT 39.7 % (37.0-47.0); MEAN CELL VOLUME 90 fl (80.0-100.0); MEAN CORPUSCULAR HEMOGLOBIN 30 pg (27.0-31.0); MEAN CORPUSCULAR HGB CONC 33 g/dl (33.0-37.0); MEAN PLATELET VOLUME 11.1 fl (7.4-10.4); MONO # 1.1 (0.1-0.6); MONO % 10.8 % (1.7-9.3); PLATELET COUNT 307 K/mm3 (130-400); REDCELL DISTRIBUTION WIDTH-CV 12.5 % (11.5-14.5)
[2020-09-05 16:00] VITALS: BP 102/72; PULSE 92
--- NOTE | 2020-09-05 17:11 | NUR ---
Patient somnolent for most of the shift until 1630 when the patient started yelling out and trying to get out of bed. Confused and not oriented. VSS. IC CDI. Patient repositioned for comfort as needed. Nursing staff reorienting patient as needed. Call light within reach, bed alarm on, door left open
[2020-09-05 19:45] VITALS: BP 105/70; PULSE 90; TEMP 97.7
--- NOTE | 2020-09-06 01:24 | NUR ---
Patient laying in bed and resting with eyes closed upon enter the room. Opens eyes with calling her name. Patient confused and not oriented. Denies any pain or discomfort. Patient refused dinner and refused all HS medications. Patient awake at 0100 am and starting get agitated. Patient had incontinent of large urine. Patient gets aggressive and kicking staff with her feet when staff try to do romeo-care and change brief and bed sheet for her. PRN Ativan given at 0130 am. Will continute to monitor.
--- NOTE | 2020-09-06 04:57 | NUR ---
Incontinent brief changed and romeo-care provided. Patient is sleeping at this time. No acute distress noted.
--- NOTE | 2020-09-06 07:36 | NUR ---
INCONTINENCE CARE PROVIDED. PATIENT WAS COOPERATIVE. REPORT FROM BARBIE.
[2020-09-06 07:37] VITALS: BP 119/72; PULSE 80; TEMP 98.3
[2020-09-06 08:23] LABS: CALCIUM 9.1 mg/dL (8.4-10.2); CREATININE, serum 1.25 (0.52-1.25); POTASSIUM 4.3 mmol/L (3.4-5.0)
--- NOTE | 2020-09-06 09:39 | NUR ---
Patient assisted with breakfast by this nurse & EMILY Muñoz. Patient ate some. Was able to get her to take most of her am medications whole since a few of them are not to be crushed. She did spit a few out see Emar. Patient started to become irritated & aggitated & combative. She is not oriented. She is alert. Mitts on. Picc to RUE with IVF as ordered. Patient was up to the bedside commode. Incontince care provided.
--- NOTE | 2020-09-06 09:51 | NUR ---
Plywood And Veneer Repairer sitting in room with patient, she is more upset.
[2020-09-06 12:00] VITALS: BP 125/79; PULSE 89; TEMP 98.3
--- NOTE | 2020-09-06 14:11 | NUR ---
Agnes hospitalist rounded. Picc to Int. Mitts off at this time. Patient had minimal interest in lunch. Resting in bed. High fall risk protocol followed.
[2020-09-06 16:00] VITALS: BP 110/59; PULSE 86; TEMP 98.2
--- NOTE | 2020-09-06 16:55 | NUR ---
Per hospital administration patient moved to room 329. Patient a very high fall risk. Patient continues to be very irritated & aggitated. swinging and kicking at staff. High fall risk will be followed to the best of staff ability
--- NOTE | 2020-09-06 17:00 | NUR ---
Hospitalist complete the report of exam and eval for the patient. SW emailed it to Mr. Mendez and to Mr. Mohr.
[2020-09-06 19:41] VITALS: BP 112/70; PULSE 80; TEMP 98.6
--- NOTE | 2020-09-06 19:44 | NUR ---
Rotogravure Press Operator assisted with dinner. Patient currently sleeping soundly. high fall risk protocol followed. Prema with shift superintendent to resume cares.
--- NOTE | 2020-09-06 22:00 | NUR ---
Patient resting in bed. Assessment complete. Lungs clear. Heart sounds normal. Bowels active x4. Pulses present throughout. No edema noted. PICC right upper flushed without complications. Denies pain. Patient confused. Alert to self only. Attempting to get out of bed. Patient combative with staff; spitting, hitting, and kicking. Mitts on. Patient using vular language and requesting beer and cigarettes. Attempted to reorient patient to surroundings. Patient convinced she is in a field and seeds needed to be planted and staff need to hurry the f up. Patient has sitter at this time. Will continue to closely monitor.
--- NOTE | 2020-09-07 00:01 | NUR ---
Resting in bed asleep at this time. Patient has been aggitated with staff. Skipping vital signs until next time patient awake. Appears in no distress at this time.
--- NOTE | 2020-09-07 02:12 | NUR ---
Incontinent of urine. Cares provided.
--- NOTE | 2020-09-07 04:13 | NUR ---
Resting in bed. Call light in reach.
--- NOTE | 2020-09-07 05:16 | NUR ---
Patient confused, combative; hitting, kicking, spitting during night. Patient had sitter during night. Resting in bed this AM. Call light in reach.
[2020-09-07 05:45] VITALS: BP 100/65; PULSE 72; TEMP 97.9
--- NOTE | 2020-09-07 06:50 | NUR ---
Report given to ANN Gipson
[2020-09-07 08:06] VITALS: BP 105/70; PULSE 78; TEMP 98.1
[2020-09-07 08:44] LABS: CALCIUM 9.4 mg/dL (8.4-10.2); CREATININE, serum 1.15 (0.52-1.25); POTASSIUM 3.9 mmol/L (3.4-5.0)
--- NOTE | 2020-09-07 11:00 | NUR ---
PATIENT INCREASINGLY AGGITATED AND TRYING TO CRAWL OUT OF BED. WHEN NURSING STAFF TRIES TO REORIENT PATIENT SHE BECOMES VERBALLY AND PHYSICALLY ABUSIVE TOWARD STAFF. PATIENT GIVEN PRN IV ATIVAN. WILL MONITOR
[2020-09-07 11:55] VITALS: BP 121/74; PULSE 78; TEMP 97.8
--- NOTE | 2020-09-07 14:30 | NUR ---
PATIENT BECOMING AGGITATED AGAIN, HITTING AND CLIMBING OUT OF BED. PATIENT GIVEN PRN IV HALDOL BY RN.
[2020-09-07 20:00] VITALS: BP 122/49; PULSE 96; TEMP 98.1
--- NOTE | 2020-09-07 21:59 | NUR ---
Pt currently resting in bed. With nurse at bedside as sitter. Pt has call light within reach.
[2020-09-08 12:09] VITALS: BP 100/77; PULSE 103; TEMP 96.2
[2020-09-08 13:02] LABS: CALCIUM 9.4 mg/dL (8.4-10.2); CREATININE, serum 1.15 (0.52-1.25)
--- NOTE | 2020-09-08 14:10 | NUR ---
Pt continues to sleep between disturbances.Wakes up and tries to get out of bed at times but able to remain off mitts for her own safety and staff safety today as she has not been combative or unable to redirect. Bed alarm remains on will contninue to monitor.
--- NOTE | 2020-09-08 16:40 | NUR ---
Pick Pack Worker faxed updated referral/clinical updates to [facility], [facility], [facility], and [facility].
[2020-09-08 16:47] VITALS: BP 104/73; PULSE 90; TEMP 97.8
--- NOTE | 2020-09-08 18:13 | NUR ---
Pt was up and getting agitated this afternoon at approximately [id number], she was moving around, difficult to redirect. Did go into bathroom often and looked under toilet seats stating "where's the dope?". Gave PRN haldol and then PRN ativan for agitation as pt did get combative and verbally agressive. Pt is currently resting quietly with mitts on for safety and bed alarm in place. Shay give bedside shift report to nightshift nurse who will resume care.
[2020-09-08 19:00] VITALS: BP 108/55; PULSE 80
--- NOTE | 2020-09-08 20:00 | NUR ---
Report received, assumed care for security shift supervisor. Assessment complete. Very [id number]-[id number] comfortably in bed. Mitts on bilat. Vitals are stable. Holding HS meds until more awake. PICC to right upper arm flushes without difficulty. Bed alarm on/call light in reach. Will continue to monitor.
--- NOTE | 2020-09-08 22:00 | NUR ---
Up to bedside commode at this time with two assist. Voided 200 mls dark cloudy urine. Unsure if stool was present-did pass some gas while on commode. Still very confused but less combative. Did tolerated a few bites of chocolate pudding and a few sips of water. Call light in reach/bed alarm on-will monitor.
[2020-09-09] VITALS (7 sets, daily range): BP systolic 84–110; BP diastolic 49–92; PULSE 70–92; TEMP 97.9–98.7
--- NOTE | 2020-09-09 02:40 | NUR ---
Resting eyes closed. No s/s of pain/distress noted. Has been more calm this shift. Did drink a little bit of fluid approx 120mls and ate some more pudding. Will continue to monitor.
--- NOTE | 2020-09-09 06:00 | NUR ---
Was less combative this shift. Received scheduled seroquel with good results. Has not received any ativan or haldol. Did get up to commode with 2 assist but incontinent of urine the rest of shift. Call light in reach/bed alarm on. Will monitor.
--- NOTE | 2020-09-09 08:00 | NUR ---
PATIENT IS DROWSY AND CONFUSED. PATIENT HAS EXTENSIVE DRUG AND ALCOHOL HX. PATIENT HAS PERIODS OF AGGITATION AND HAS MITTS TO BUE. PATIENT SPIT OUT MOST OF HER AM MEDS WHICH WERE GIVEN TO HER IN PUDDING. PATIENT ALSO REFUSING TO EAT AND SPIT EGGS OUT. PATIENT DOESN'T APPEAR TO HAVE ANY ISSUES WITH N/V. RIGHT PICC LINE TO INT. INCONTINENT OF BOWL/BLADDER, BRIEF ON. [facility] SOFT DIET. PT/OT/ST CONSULTED. HEAD TO TOE ASSESSMENT COMPLETE. PATIENT IS HIGH FALL RISK. BED ALARM ON, SITTER AT BEDSIDE.
--- NOTE | 2020-09-09 08:56 | NUR ---
Betting Clerk contacted the [facility] unit to request they reconsider referral, which was sent yesterday and had been previously sent last week. Lana to review referral and follow up. ERMA received a message from Denia at [facility] who advised they still will not accept referral due to underlying substance abuse issues. ERMA will continue to follow.
--- NOTE | 2020-09-09 10:51 | NUR ---
Warp Doffer spoke with Lana at the [facility] who advised they will not be able to consider referrals until early next. Lana advised that they will call for updates on Sunday if patient is still here then have their physician review the referral.
--- NOTE | 2020-09-09 11:40 | NUR ---
PATIENT'S IS INCREASINGLY AGGITATED AND TRYING TO GET OUT OF BED. GAVE PRN HALDOL.
--- NOTE | 2020-09-09 15:57 | NUR ---
PATIENT IS GETTING RESTLESS AND AGGITATED. PATIENT MAKING CONFUSED STATEMENT LIKE "I NEED A BIRD TO KILL". PATIENT TRYING TO GET OUT OF BED. GAVE PRN ATIVAN IV.
--- NOTE | 2020-09-09 19:00 | NUR ---
RECEIVED CHANGE OF SHIFT REPORT FROM DAY SHIFT NURSE.
[2020-09-10] VITALS (7 sets, daily range): BP systolic 90–124; BP diastolic 48–76; PULSE 68–94; TEMP 98.2–98.5
--- NOTE | 2020-09-10 00:13 | NUR ---
INFORMED ONCALL HOSP PROVIDER OF MOST RECENT BP READING WITH ORDERS ENTERED BY PROVIDER. IVF HUNG PER PROVIDER'S ORDERS.
--- NOTE | 2020-09-10 06:59 | NUR ---
CHANGE OF SHIFT REPORT GIVEN TO DAY SHIFT NURSECAITLYN.
[2020-09-11 00:11] VITALS: BP 115/64; PULSE 70; TEMP 97.9
[2020-09-11 00:23] LABS: COLLECTION METHOD CLEAN CATCH
[2020-09-11 00:52] LABS: AMORPHOUS CRYSTAL Present /uL; PH 7 (5-8); URINE APPEARANCE Cloudy; URINE BACTERIA Moderate /hpf; URINE BILIRUBIN Negative (NEGATIVE); URINE BLOOD Negative (NEGATIVE); URINE COLOR Yellow; URINE GLUCOSE Negative (NEGATIVE); URINE KETONE Negative (NEGATIVE); URINE LEUKOCYTE ESTERASE 3+ (NEGATIVE); URINE NITRATE Positive (NEGATIVE); URINE PROTEIN(semi-quant) 1+ (NEGATIVE); URINE UROBILINOGEN Negative (NEGATIVE)
[2020-09-11 04:22] VITALS: BP 135/71; PULSE 81; TEMP 98
--- NOTE | 2020-09-11 06:00 | NUR ---
Patient has been confused most the night. After midnight, she would not allow us to help her get cleaned up. She was trying to hit us. She would do it on her own if I handed the stuff to her. She only tried to get up when she wanted to go to the bathroom, otherwise she slept most the night. Urine sample taken to lab, started on antibiotics for UTI. She would not eat much for her supper but she did eat a pudding before bed. She denies pain and nausea. Her right foreram was swollen from the elbow down. The acewrap was very tight to her PICC line. Replaced the acewrap and put a new one on. No other changes at this time. Call light within reach. Bed alarm on.
[2020-09-11 08:04] LABS: BASO % 0.8 % (0.0-2.0); EOS # 0.1 (0.0-0.7); EOS % 2.1 % (0-4.0); GRAN # 2.7 (1.4-6.5); GRAN % 51.7 % (42.2-75.2); HEMOGLOBIN 10.9 g/dl (12.5-16.0); LYMPH # 1.8 (1.2-3.4); LYMPH % 34.5 % (20.0-51.0); MEAN CELL VOLUME 92 fl (80.0-100.0); MEAN CORPUSCULAR HEMOGLOBIN 30 pg (27.0-31.0); MEAN CORPUSCULAR HGB CONC 33 g/dl (33.0-37.0); MEAN PLATELET VOLUME 11.8 fl (7.4-10.4); MONO # 0.6 (0.1-0.6); MONO % 10.9 % (1.7-9.3); PLATELET COUNT 230 K/mm3 (130-400); RED BLOOD COUNT 3.65 M/mm3 (4.10-5.30); REDCELL DISTRIBUTION WIDTH-CV 12.7 % (11.5-14.5)
[2020-09-11 08:18] LABS: CALCIUM 9.2 mg/dL (8.4-10.2); CREATININE, serum 1.05 (0.52-1.25); POTASSIUM 3.7 mmol/L (3.4-5.0)
[2020-09-11 08:19] LABS: HEMATOCRIT 33.4 % (37.0-47.0)
[2020-09-11 09:14] VITALS: BP 100/75; PULSE 73; TEMP 97.6
--- NOTE | 2020-09-11 12:05 | NUR ---
Patient alert, confused. Behaviours appropriate. No c/o at this time.
[2020-09-11 13:23] VITALS: BP 90/55; PULSE 74; TEMP 98.3
[2020-09-11 16:24] VITALS: BP 93/54; PULSE 66; TEMP 98.5
--- NOTE | 2020-09-11 20:00 | NUR ---
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 Assessment complete. VS stable. A&O to self-very confused conversation-but very pleasent. Took HS meds without difficutly. Denies pain/nausea. Able to get 240mls of water in as well as a chocolate pudding. Denies needs. Call light in reach/bed alarm on. Will monitor.
[2020-09-11 20:30] VITALS: BP 96/58; PULSE 68; TEMP 97.6
--- NOTE | 2020-09-11 23:00 | NUR ---
Up out of bed to bathroom at this time. Voided 250mls clear yellow urine. Ambulating in hallway approx 1000feet with stand by assist/gait belt. Tolerated well. Back to bed at this time. Will continue to monitor.
--- NOTE | 2020-09-11 23:30 | NUR ---
Up out of bed at this time to ambulate. Starting to get upset stating "I need to get out of here and find my daughter." Determined to find the elevator to get out of the building. DId get back to bed after ambulating for approx 15 minutes. Ativan given per dr order once back to room as continued agitation about getting out of "the [facility]ity [facility]."
[2020-09-12] VITALS (10 sets, daily range): BP systolic 79–122; BP diastolic 45–72; PULSE 65–82; TEMP 97.2–98.4
--- NOTE | 2020-09-12 01:03 | NUR ---
Notified by PCT of low blood pressure of 80s/40s. Manual blood pressure done at this time by this nurse-92/56. Will continue to monitor.
--- NOTE | 2020-09-12 02:29 | NUR ---
Up to ambulate in hallways. Very confused looking for "Rebecca." but able to ambulate and get back to bed with stand by assist. Call light in reach/bed alarm on. Will monitor.
--- NOTE | 2020-09-12 05:57 | NUR ---
Rested off and on this shift. AMbualted in the hallway several times-stand by assist/gait belt. Voided x2 in toilet-no incontinence. More alert but still confused. Not combative at all this shift-very pleasent conversation. Was able to tolerate more PO. Denied pain/nausea/shortness of breath. VS remained stable with some low blood pressures-baseline. Denies current needs. Call light in reach/bed alarm on. WIll monitor.
--- NOTE | 2020-09-12 10:36 | NUR ---
SW still waiting on guardianship paperwork. No other needs were identified at this time. Social work will continue to follow.
--- NOTE | 2020-09-12 11:30 | NUR ---
Patient alert, confused. See assessment. Becomes tearful at times. No inappropriate behaviors. No c/o at this time.
--- NOTE | 2020-09-12 20:40 | NUR ---
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 Assessment complete. VS stable. A&O to cbet-[id number]-ujzr hostile conversation. Very combative tonight-cursing and yelling into hallway. Will give HS seroquel and monitor closely. Thinks she is in her apartment-hallucinating and very paranoid. Tried to get dinner tray served but pushed away. Did take in 480mls of fluid and ate a little bit of soup and pudding. Ambulated to bathroom and voided 350mls clear yellow urine. On way back to bed pushed this nurse and cursed more. PCT sitting outside of room until patient calms down more. Call light is in reach/bed alarm is on. Will monitor.
--- NOTE | 2020-09-12 21:26 | NUR ---
Screaming out/cursing and very combative. Kicked this nurse and grabbed arms of other staff. States she wants her drugs and her cigarettes and to get everyone out of her apartment. Climbing over bed rails. Haldol 1mg given per [address] duffy. PCT at bedside. Will continue to monitor.
--- NOTE | 2020-09-13 01:40 | NUR ---
Assisted up to bathroom at this time. Voided without difficulty. Assisted back to bed. Resting comfortably with no s/s of distress noted.
[2020-09-13 03:20] VITALS: BP 97/50; PULSE 73; TEMP 97.8
--- NOTE | 2020-09-13 05:19 | NUR ---
Climbing out of bed over rails stating "I need to get high, I need my cigarettes." Cursing at staff and swatting. States there are rats in her bed and they need to be killed. Tried to re-orient and calm down but continues to curse and swat staff. IV rocephin due but refusing admin stating "I dont use drugs with needles." Haldol given per dr order. Able to calm down and receive antibiotics and take AM medications. Call light in reach/bed alarm on. Will monitor.
[2020-09-13 07:32] LABS: BASO % 0.7 % (0.0-2.0); EOS # 0.2 (0.0-0.7); GRAN # 2.5 (1.4-6.5); HEMOGLOBIN 11.4 g/dl (12.5-16.0); LYMPH # 2.4 (1.2-3.4); LYMPH % 41.1 % (20.0-51.0); MEAN CELL VOLUME 92 fl (80.0-100.0); MEAN CORPUSCULAR HEMOGLOBIN 30 pg (27.0-31.0); MEAN CORPUSCULAR HGB CONC 33 g/dl (33.0-37.0); MEAN PLATELET VOLUME 11.3 fl (7.4-10.4); MONO # 0.6 (0.1-0.6); PLATELET COUNT 245 K/mm3 (130-400); RED BLOOD COUNT 3.78 M/mm3 (4.10-5.30); REDCELL DISTRIBUTION WIDTH-CV 12.9 % (11.5-14.5)
[2020-09-13 07:43] LABS: HEMATOCRIT 34.8 % (37.0-47.0)
[2020-09-13 07:57] LABS: CALCIUM 9.2 mg/dL (8.4-10.2); CREATININE, serum 1.01 (0.52-1.25); POTASSIUM 3.8 mmol/L (3.4-5.0)
[2020-09-13 08:14] VITALS: BP 121/76; PULSE 80; TEMP 98.6
--- NOTE | 2020-09-13 08:18 | NUR ---
Patient sitting up in recliner finishing her breakfast and watching TV. Patient is alert but confused. Denies pain. Patient assisted to bed at this time per her request. Denies any additional needs.
--- NOTE | 2020-09-13 10:03 | NUR ---
Lying in bed on left side with eyes closed. Respirations even and unlabored. No signs or symptoms of discomfort noted at this time.
--- NOTE | 2020-09-13 10:50 | NUR ---
Tanning Wheel Operator spoke with Lana at [facility] who advised they are now reviewing referrals for admit. Lana will follow up once referral is reviewed.
[2020-09-13 11:07] VITALS: BP 107/62; PULSE 80; TEMP 98.7
--- NOTE | 2020-09-13 12:09 | NUR ---
Patient ambulates in halls with assist of one. Gait slow, leans towards the left when she walks. Patient returns to room and gets in bed. Denies additional needs at this time.
--- NOTE | 2020-09-13 12:38 | NUR ---
Patient starting to get agitated. Ambulates in halls and then returns to room. Haldol administered as prescribed. Patient assisted to comfortable position in bed.
--- NOTE | 2020-09-13 13:11 | NUR ---
Patient continues to be agitated and angry towards staff. Administer Ativan as prescribed.
--- NOTE | 2020-09-13 14:17 | NUR ---
Patient assisted up to bathroom as she was trying to get out of bed. Patient voids and returns to bed. Patient expresses irritation that she is in the hospital. Denies additional needs.
[2020-09-13 16:09] VITALS: BP 117/74; PULSE 81; TEMP 98.2
--- NOTE | 2020-09-13 16:17 | NUR ---
Patient continues to off and on try to get out of bed. Denies pain when asked. Tells staff to mind their business. Denies needs.
--- NOTE | 2020-09-13 16:43 | NUR ---
Patient keeps trying to get out of bed. At times is uncooperative with staff. Attempted to throw water on staff. Will administer Ativan as prescribed.
--- NOTE | 2020-09-13 16:57 | NUR ---
Patient would not take the multivitamin, kept trying to push the vitamin in her nose. Patient then tries to printed circuit board pcb draftsman the bed. Instruct patient to sit back in the bed. Patient then begins to curse at this nurse. Lays back in bed at this time. Tries to get up a couple more times.
--- NOTE | 2020-09-13 18:04 | NUR ---
Assist patient in eating dinner. Patient ate about 25%. Patient continues at times to be cooperative and then other times noncooperative and curses. Patient denies needs when asked if she needs anything. Lying in bed with bed alarm on.
[2020-09-13 19:30] VITALS: BP 113/52; PULSE 68; TEMP 98
--- NOTE | 2020-09-13 20:00 | NUR ---
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 Assessment complete. VS stable. A&O to self-confused pleasent conversation-thinks she is in a mental hospital and someone has taken her clothes. Assisted to the bathroom-voided 250mls of clear yellow urine. Denies pain/nausea/shortness of breath. Took HS meds with water without issue. Plan of care discussed to include HS meds/calling for questions/concerns. Call light in reach/bed alarm on-will monitor.
[2020-09-14 01:00] VITALS: BP 102/56; PULSE 68; TEMP 97
--- NOTE | 2020-09-14 03:00 | NUR ---
Climbing over bed rails yelling out looking for Eva. Alainal given per dr duffy. Will continue to monitor.
[2020-09-14 05:21] VITALS: BP 1108/65; PULSE 68; TEMP 97.8
--- NOTE | 2020-09-14 05:31 | NUR ---
Assisted up to bathroom-stand by. Voided without difficulty-350mls clear yellow urine. Back to bed at this time. Call light in reach/bed alarm on. Will monitor.
--- NOTE | 2020-09-14 06:23 | NUR ---
Screaming out room asking for drugs and her baby. Tyring to climb over bed rails. Swatting at this nurse. Ativan given per dr order. Call light in reach/bed alarm on. Will monitor.
[2020-09-14 07:23] VITALS: BP 99/52; PULSE 44; TEMP 98.7
[2020-09-14 11:45] VITALS: BP 104/65; PULSE 70; TEMP 98.2
--- NOTE | 2020-09-14 13:38 | NUR ---
Patient has been very confused today. She won't sit still. She keeps trying to get up and go home. She is worried about her dog. Explained she is in the hospital. Ativan and haldol given. She ate some of her lunch but not much. No complants of pain or nausea. She was doing fine this morning. She was not as agitated and was laying in bed watching tv. No other changes at this time. Call light within reach. Bed alarm on.
--- NOTE | 2020-09-14 16:47 | NUR ---
Automotive Design Drafter received the signed Order of Temporary Guardianship and Temporary Conservatorship, copy placed in chart. ERMA attempted to contact Lana with [facility] to provide update, left message. ERMA faxed referrals to [facility], and to [facility] in [place]. ERMA set up zoom meeting with the business attorney on 09/15 at 0900. ERMA collaborated the above information with the PA and the patient's nurse.
--- NOTE | 2020-09-14 18:30 | NUR ---
Patient is finally resting. She has been more agreeable this afternoon and has been sleeping. Denies nausea and pain. No other changes at this time. Call light within reach. Bed alarm on.
--- NOTE | 2020-09-14 20:30 | NUR ---
Resting in bed. Assessment complete. Lungs clear. Heart sounds normal. Bowels active x4. Pulses present throughout. No edema noted. PICC to right upper flushed without complications. Patient alert, confused to place and surroundings. Took medications without complications. Denies pain. Denies needs at this time. Call light in reach. 2054: Patient friend Tonja Pedro called for updated. Patient privacy code given by Tonja. Updated on patient for the evening. Denies other questions at this time.
--- NOTE | 2020-09-14 23:59 | NUR ---
Resting in bed asleep. Call light in reach.
[2020-09-15 00:35] VITALS: PULSE 63; TEMP 97.4
--- NOTE | 2020-09-15 00:37 | NUR ---
Patient refused to have BP taken. Able to take rest of vital signs. Will monitor.
--- NOTE | 2020-09-15 01:52 | NUR ---
Resting in bed asleep. Call light in reach.
[2020-09-15 05:09] VITALS: PULSE 68; TEMP 97.9
--- NOTE | 2020-09-15 05:42 | NUR ---
Patient combative with staff and aggitated. Attempted to take patient to restroom patient refusing. Unable to redirect easily. patient digging nails into staff. Mitts applied at this time. Will reassess taking mitts off when patient emotional state more stable. Bed alarm in place.
--- NOTE | 2020-09-15 06:08 | NUR ---
Patient continues to be combative and aggitated with staff. Given PRN haladol
--- NOTE | 2020-09-15 06:10 | NUR ---
Patient had uneventful night up until this AM. Patient then woke up and became aggitated with staff, hitting and digging nails into staff. Patient was given ativan to start and then haldol as behaviors continued. GLAZIER ARTIST at bedside with patient at this time for safety reasons. Will continue to monitor.
--- NOTE | 2020-09-15 06:55 | NUR ---
Report given to Andreina JUAREZ
--- NOTE | 2020-09-15 07:08 | NUR ---
Patient resting in bed with eyes closed. Respirations even and unlabored. No signs or symptoms of discomfort at this time.
[2020-09-15 08:00] VITALS: BP 103/67; PULSE 66; TEMP 97.9
--- NOTE | 2020-09-15 09:07 | NUR ---
Patient continues to rest in bed with eyes closed. Neida, social group worker, was in and tried to get patient to wake up to do a Zoom meeting and patient says that she does not want to do anything at this time but sleep.
--- NOTE | 2020-09-15 09:22 | NUR ---
Patient continues to sleep, even through assessment. No signs or symptoms of discomfort noted at this time.
--- NOTE | 2020-09-15 09:53 | NUR ---
Patient awake at this time. Walks around in room with assist of one. Patient is confused, attempt to reorient. Patient sits up in bed and eats breakfast at this time. Pills administered as prescribed, patient takes without difficulty. BP meds help due to low BP. Patient voices no needs.
--- NOTE | 2020-09-15 10:02 | NUR ---
Patient eats approximately 40% of breakfast then requests to lay down. Assist into comfortable position. Denies further needs.
[2020-09-15 10:55] VITALS: BP 104/647; PULSE 82; TEMP 98
--- NOTE | 2020-09-15 11:07 | NUR ---
Patient is lying in bed with eyes closed. Respirations even and unlabored. No signs or symptoms of discomfort noted at this time.
--- NOTE | 2020-09-15 12:32 | NUR ---
Patient resting in bed with eyes closed. Respirations even and unlabored. No signs or symptoms of discomfort noted at this time.
--- NOTE | 2020-09-15 14:32 | NUR ---
Patient becoming more agitated. Staff member attempting to ambulate with the pateint in halls. Patient keeps screaming "Fahad" hard to get the patient to calm down. Patient returns to room from ambulating and assisted to comfortable position in the bed. Ativan administered as prescribed. Patient encouraged to relax at this time. Off and on keeps screaming out for Fahad.
--- NOTE | 2020-09-15 15:33 | NUR ---
Patient continues to scream out and is cursing at staff, keeps trying to line welder the bed or get out of bed. Haldol administered as prescribed.
[2020-09-15 16:28] VITALS: BP 114/77; PULSE 73; TEMP 98.2
--- NOTE | 2020-09-15 16:55 | NUR ---
Lying in bed on left side with eyes closed. Respirations even and unlabored. No signs or symptoms of discomfort noted at this time.
--- NOTE | 2020-09-15 17:45 | NUR ---
[facility] declined referral due to patient's underlying substance abuse issues. ERMA received a message from [facility] that they will also decline referral. ERMA spoke with Lana at [facility] who advised her team is still reviewing. ERMA then spoke with [facility] who advised they didn't receive referral. ERMA was advised they don't have beds but they would still review referral and potentially put her on a waiting list. ERMA refaxed referral.
--- NOTE | 2020-09-15 17:47 | NUR ---
ERMA Gonzalez facilitated meeting via zoom between Abebe Navarro, bagging salvager and patient.
--- NOTE | 2020-09-15 17:55 | NUR ---
Lying in bed on left side with eyes closed. Respirations even and unlabored. No signs or symptoms of discomfort noted at this time.
--- NOTE | 2020-09-15 18:24 | NUR ---
Patient resting in bed in supine position with eyes closed. Respirations even and unlabored. No signs or symptoms of discomfort noted at this time.
[2020-09-15 20:00] VITALS: BP 96/58; PULSE 79; TEMP 98
--- NOTE | 2020-09-16 03:03 | NUR ---
Pt currently sleeping in bed. Pt did get up a few times at the beginning of the shift. Pt ambulated to the restroom and ambulated to the door as a stand by assist. Pt ate a cup of chocolate ice cream and took her night medications well. Pt did get back in bed each time and she would lay back down. She asked a couple of times where her son was.
--- NOTE | 2020-09-16 03:51 | NUR ---
Pt is currently awake and has been walking the halls. Pt has told staff that she would hit them if they didn't let her go. She was attempting to walk in pts rooms. Pt was very agitated so pt was given Ativan at this time. Pt did ambulate to the restroom but didn't want staff to touch her at all. Pt refused to have a brief on at this time. She did void in her brief and it was removed. Pt continues to tell staff to leave her alone. For her safety staff stayed in place to make sure pt was safe. Pt has he call light within reach and her bed is in lowest position.
--- NOTE | 2020-09-16 06:43 | NUR ---
Patient up in room, pushing at staff, trying to get in the halls. Patient is yelling for the mottler operator to be called and cursing at staff, telling everyone to get away from her. Attempt to calm patient but she continued to scream. Able to get patient back in bed. Haldol administered as prescribed. Staff remains at bedside.
[2020-09-16 07:06] VITALS: BP 123/78; PULSE 86; TEMP 98.5
--- NOTE | 2020-09-16 07:07 | NUR ---
Patient a little calmer and more cooperative at this time. Assessment complete. Patient is alert and oriented to only self. Confused on where she is at and what is going on. Attempt to reorient patient. Denies pain. No further needs at this time.
--- NOTE | 2020-09-16 07:18 | NUR ---
Pt medications this morning were not given due to pt not wanting to be touched. Pt stated she did not want her medication. ANN Hdz gave pt medications with morning medications.
--- NOTE | 2020-09-16 08:03 | NUR ---
Patient is resting in bed on left side with eyes closed. Respirations even and unlabored. No signs or symptoms of discomfort noted at this time.
--- NOTE | 2020-09-16 08:42 | NUR ---
Patient sits on edge of bed and eats some peaches. RT in room and performs EKG. Patient requests to lay back down. Assisted patient into comfortable position.
--- NOTE | 2020-09-16 10:22 | NUR ---
Patient ambulating in halls with assist of one. Gait slow, unsteady at times.
--- NOTE | 2020-09-16 10:27 | NUR ---
Patient returns to room and gets in bed.
[2020-09-16 11:30] VITALS: BP 99/69; PULSE 79; TEMP 98.3
--- NOTE | 2020-09-16 11:47 | NUR ---
Patient restless in bed. Attempting to get up. Ask patient what she is trying to do. Patient says that she does not want to do anything. Attempt to reorient patient. Patient continues to be confused. Patient agrees to lie back in bed. Assisted into comfortable position. Closes eyes at this time.
--- NOTE | 2020-09-16 11:49 | NUR ---
Patient again trying to get out of bed. Patient says she is not trying to go anywhere when asked. Assisted back into the bed and encouraged to rest.
--- NOTE | 2020-09-16 13:26 | NUR ---
Patient screaming out, being verbally inappropriate to staff. Becoming agitated easily. Leonela, battery charger conveyor line, administers Ativan.
--- NOTE | 2020-09-16 14:21 | NUR ---
Patient off and on keeps trying to get out of bed. Patient is drowsy. Encourage patient to rest at this time.
--- NOTE | 2020-09-16 14:34 | NUR ---
Surfacing Technician attempted to contact [facility] in [place], but they are now closed. ERMA contacted [facility] who advised they do not have beds available this week, but will continue to review referral. [facility] in [place] advised they have no beds and will call once they have an opening. ERMA contacted Lana at [facility] and was advised they have a high acuity and it is uncertain if they will be able to accept patient. Lana states their director of group counseling program is reviewing updates. ERMA contacted Gardenia at [facility]. [place] had previously declined referral due to medical needs. ERMA refaxed referral and asked [facility] to reconsider. [facility] advised they have no beds but will still review referral for reconsideration. ERMA contacted patient's son, Fahad to provide update. Fahad is hopeful to have patient eventually live closer to him in [place]. Fahad inquired about a couple facilities in [place] that ERMA had previously sent referral to. ERMA followed up with [facility] and was advised they declined referral. ERMA contacted [facility] in [facility] and [facility] in [facility], both have senior behavioral health units. ERMA faxed referrals. ERMA spoke with ERMA Gomes at [facility] who advised he will review referral and follow up.
--- NOTE | 2020-09-16 15:32 | NUR ---
Eliseo at [facility] advised there physician declined referral as patient is not meeting their criteria. Eliseo advised patient would need to be in imminent danger to herself or others to meet their criteria for admission.
--- NOTE | 2020-09-16 15:41 | NUR ---
Patient resting in bed on left side with eyes closed. Respirations even and unlabored. No signs or symptoms of discomfort noted.
--- NOTE | 2020-09-16 16:53 | NUR ---
Remains resting in bed on left side with eyes closed. Respirations even and unlabored. No signs or symptoms of discomfort noted at this time.
--- NOTE | 2020-09-16 17:22 | NUR ---
Continues resting in bed with eyes closed on left side. Respirations even and unlabored. No signs or symptoms of discomfort noted.
--- NOTE | 2020-09-16 18:23 | NUR ---
Patient lying in supine position in the bed with eyes closed. Respirations even and unlabored. No signs or symptoms of discomfort noted at this time.
--- NOTE | 2020-09-16 19:51 | NUR ---
Pt assisted to bathroom, voids. Is confused to place and time. Takes HS meds in pudding. Bed alarm on. Has right PICC line intact.
[2020-09-16 20:58] VITALS: BP 108/70; PULSE 65; TEMP 98.3
--- NOTE | 2020-09-17 00:46 | NUR ---
PT HITTING STAFF WITH STRAWS, BOX OF WIPES AND CUPS. YELLING "GET OUT OF MY APARTMENT". ATIVAN GIVEN IVP AT THIS TIME.
--- NOTE | 2020-09-17 03:03 | NUR ---
PT WALKING IN HALLWAY, RESISTIVE TO STAFF. MEDICATED WITH HALDOL 1MG IVP AT THIS TIME.
[2020-09-17 05:56] VITALS: BP 84/41; PULSE 70; TEMP 98.3
[2020-09-17 08:00] VITALS: BP 117/57; PULSE 69; TEMP 97.6
--- NOTE | 2020-09-17 11:00 | NUR ---
Spoke with Dr Breonna Rice about switching patients medications. Patient has been more agitated and combative after getting seroquel. She has been needing ativan and haldol after getting the medication. She has been worse as well since they increased it to TID. She has been started on olanzapine 5mg BID. Seroquel has been discontinued. First dose given this am. Will continue to monitor. No other changes at this time. Call light within reach. Bed alarm on.
--- NOTE | 2020-09-17 15:10 | NUR ---
sanitation worker hosing machinery contacted the [facility] and updated about medication changes this date. [facility] will review patient next Sunday when they have open beds. [facility] is aware that no IV medications were used today and state that is positive. Worker spoke with [facility] [place] [facility] and they will review patient next week when they have open beds.
--- NOTE | 2020-09-17 19:00 | NUR ---
Patient slept most the afternoon. The change in medications seemed to work. She is still confused but is able to verbalize what she wants to eat or drink or ask questions about what is going on. She woke up around 1730 and has been trying to walk around more and thinks this is her apartment. She is not combative but keeps threatening us. She is upset that she can not drink or smoke here. She is also upset that we are keeping her from seeing her friends? Encouraged her to eat supper, she stated she was very hungry but she refused. She did not want what was on the menu but also refused anything else we tried to give her to eat. Denies pain or nausea. She is following directions better today. She will lay down or sit down when asked. No other changes at this time. Call light arlethcitibuddiesthien reach. Bed alarm on. Patient is resting at this time.
[2020-09-17 20:07] VITALS: BP 98/51; PULSE 87; TEMP 97.7
--- NOTE | 2020-09-17 22:00 | NUR ---
PT AWAKENS EASILY TO NAME. IS COOPERATIVE WITH STAFF AND TAKES HS MEDS AT THIS TIME. RIGHT PICC LINE INTACT. BED ALARM ON.
--- NOTE | 2020-09-18 04:39 | NUR ---
Pt restless in her room, hoarding things from the nurses station, pulling on her call light cord and phone cord. Wants to move out and asking staff for a ride. Ativan 0.5mg IVP at this time. Has drank 2 Pepsi's and used the restroom several times. Rt PICC flushes well.
[2020-09-18 05:30] VITALS: BP 110/70; PULSE 77; TEMP 98.3
--- NOTE | 2020-09-18 05:34 | NUR ---
REMAINS AGITATED, KICKING STAFF. HALDOL 1MG IVP AT THIS TIME.
[2020-09-18 06:54] LABS: BASO % 0.6 % (0.0-2.0); EOS # 0.2 (0.0-0.7); EOS % 2.6 % (0-4.0); GRAN # 3.6 (1.4-6.5); GRAN % 58.6 % (42.2-75.2); HEMOGLOBIN 11.6 g/dl (12.5-16.0); LYMPH # 1.6 (1.2-3.4); MEAN CELL VOLUME 93 fl (80.0-100.0); MEAN CORPUSCULAR HEMOGLOBIN 30 pg (27.0-31.0); MEAN CORPUSCULAR HGB CONC 32 g/dl (33.0-37.0); MEAN PLATELET VOLUME 10.8 fl (7.4-10.4); MONO # 0.7 (0.1-0.6); PLATELET COUNT 247 K/mm3 (130-400); RED BLOOD COUNT 3.85 M/mm3 (4.10-5.30); REDCELL DISTRIBUTION WIDTH-CV 13.4 % (11.5-14.5)
[2020-09-18 06:59] LABS: HEMATOCRIT 35.9 % (37.0-47.0)
[2020-09-18 07:02] LABS: ALBUMIN 3.9 gm/dL (3.5-5.0); BILIRUBIN,TOTAL 0.5 mg/dL (0.0-1.0); CALCIUM 9.1 mg/dL (8.4-10.2); CREATININE, serum 1.05 (0.52-1.25); POTASSIUM 3.5 mmol/L (3.4-5.0); TOTAL PROTEIN 6.2 gm/dL (6.4-8.2)
[2020-09-18 07:50] VITALS: BP 126/67; PULSE 62; TEMP 97.8
--- NOTE | 2020-09-18 12:02 | NUR ---
Patient alert, confused. Inappropriate behaviors at times throughout the morning. No s/s pain noted.
[2020-09-18 12:04] VITALS: BP 119/61; PULSE 71; TEMP 98.8
--- NOTE | 2020-09-18 22:37 | NUR ---
PT HAS BEEN SLEEPING SINCE 183. WILL MONITOR FOR CHANGES. HS MEDS NOT GIVEN AT THIS TIME.
--- NOTE | 2020-09-18 23:30 | NUR ---
PT AWAKE. IS CONFUSED AND ROAMING HER ROOM AND HALLWAY, TRYING TO LOOK FOR A RIDE. IS NOT COOPERATIVE WITH STAFF. INTITIALLY REFUSED HS MEDS. ADDED ATIVAN 0.5MG PO FOR AGITATION. PT CONTINUES TO SEARCH FOR SHOES AND A RIDE.
--- NOTE | 2020-09-18 23:50 | NUR ---
PT CIERA. KICKING AND HITTING STAFF. HALDOL 1MG IM GIVEN.
[2020-09-18 23:52] VITALS: BP 122/69; PULSE 76; TEMP 97.5
--- NOTE | 2020-09-19 05:43 | NUR ---
PT STANDING AT NURSES STATION, WANTING "TRANSPORTATION" TO LEAVE. DOES NOT KNOW WHERE SHE IS. ROAMING IN ROOM AND HALLWAY. RE-DIRECTED BACK TO ROOM.
--- NOTE | 2020-09-19 06:03 | NUR ---
MEDICATED WITH AM MED INCLUDING ATIVAN FOR AGITATION. TAKES WITHOUT PROBLEM.
--- NOTE | 2020-09-19 11:12 | NUR ---
Patient alert, confused. Calm affect this morning, visits politely, requests to be left to rest. No c/o at this time.
[2020-09-19 13:00] VITALS: BP 124/76; PULSE 69; TEMP 98.1
[2020-09-19 23:56] VITALS: BP 150/99; PULSE 66; TEMP 97
[2020-09-20] VITALS (8 sets, daily range): BP systolic 75–127; BP diastolic 40–79; PULSE 58–76; TEMP 97.6–98.5
--- NOTE | 2020-09-20 01:37 | NUR ---
Pt resting in bed. Pt has her call light within reach. Pt did take her night medications with orange juice. Pt woke up around 2340 and pt was given her meds at this time. Pt did walke the halls with the aide but is now in bed resting.
--- NOTE | 2020-09-20 04:00 | NUR ---
Pt back in bed. Pt amublated to the restroom. Pt was in a very pleasant mood. Pt talked about her job and what she use to do. Pt has her call light within reach. Pt requested a warm blanket and was given a blanket at this time.
--- NOTE | 2020-09-20 10:30 | NUR ---
Patient is alert and oriented this morning. She stated she thought it was the end of July, beginning of August, that is when she was admitted. Explained that it is now the end of August. Discussed the discharge plan and change to her medications. She verbalized understanding. There was several pills found in her bed this morning. We are not sure when she dropped them but she did not take them and gave them to me to destroy. She was able to identify a few of her pills and gave them to be to destroyed. No other changes at this time. Call light within reach. Bed alarm on. She has also been talking to her family on her cellphone.
--- NOTE | 2020-09-20 17:05 | NUR ---
Clay Temperer faxed updates to [facility], [facility] and [facility]. Lana at [facility] advised their physician has declined referral due to medical complexity and delirium. SW contacted Sumaya at the [facility] who will review updates and follow up.
--- NOTE | 2020-09-20 18:45 | NUR ---
Patient has been doing ok. Her BP was 75/42. Notified Sonal KHAN with Hospitalist group. 500ml NS bolus started as ordered. Patient remains alert and oriented. She is very sleepy this afternoon. She is eating and drinking. No other changes at this time. Call light within reach.
--- NOTE | 2020-09-20 19:30 | NUR ---
Pt's bolus complete, B/P remains low. Mariza KHAN orders to repeat NS Bolus of 500cc. Pt is alert and oriented, cooperative with staff. Rt PICC flushes well and fluids infusing without difficulty.
--- NOTE | 2020-09-20 21:00 | NUR ---
Second bolus complete. Takes HS meds without problem. B/P 105/62. Will monitor for changes.
[2020-09-21] VITALS (7 sets, daily range): BP systolic 87–143; BP diastolic 52–93; PULSE 60–75; TEMP 97.5–98.6
--- NOTE | 2020-09-21 05:00 | NUR ---
Pt calls for assist to bathroom, voids and back to bed. Drinking cranberry juice. Denies needs.
--- NOTE | 2020-09-21 11:00 | NUR ---
Patient is discharging home. No complaints of pain or nausea. Explained that it will take time to get all her appointments set up and her discharge medications done. She verbalized understanding. Explained that it will be late afternoon. No other changes at this time. Call light within reach.
[2020-09-21 15:19] LABS: COLLECTION METHOD CLEAN CATCH
[2020-09-21] MEDS ORDERED: KEPPRA 500MG500 MG PO (15:30)
[2020-09-21] MEDS ORDERED: ZYPREXA 5MG5 MG PO (15:31)
[2020-09-21 15:37] LABS: MUCOUS Present /lpf; PH 5 (5-8); URINE APPEARANCE Cloudy; URINE BACTERIA Occasional /hpf; URINE BILIRUBIN Negative (NEGATIVE); URINE BLOOD Negative (NEGATIVE); URINE COLOR Yellow; URINE GLUCOSE Negative (NEGATIVE); URINE KETONE Negative (NEGATIVE); URINE LEUKOCYTE ESTERASE 2+ (NEGATIVE); URINE NITRATE Negative (NEGATIVE); URINE PROTEIN(semi-quant) Negative (NEGATIVE); URINE UROBILINOGEN Negative (NEGATIVE)
--- NOTE | 2020-09-21 17:09 | NUR ---
ERMA contacted Sumaya at the [facility] and she had no timeline on when a bed would be available for patient or if they would clinically accept. ERMA also contacted [facility] and [facility]. Both have no beds or no timeline on bed availability. ERMA collaborated with Hospitalist about discharge plan as patient is more alert and oriented and is independent in her room. Hospitalist advised patient can be discharged home but would like a screen done by [facility] for safety. ERMA collaborated with Irasema at the [facility] who conducted a screening with patient via Zoom. Irasema advised patient is safe to be discharged home at this time. ERMA and Psychiatric Social Worker, Gi Delgado contacted both Fahad, son/guardian and Chester, Brother to advise that patient will be discharged home today. Chester advised he can pickling operator patient after work tonight. ERMA collaborated with Sofia Woods RN-CM to set up patient for primary care. Sofia could not review with Dr. Richey today but will meet with Dr. Richey tomorrow and follow up with both Chester and ERMA about setting up primary care. ERMA also contacted [facility] intake to request they contact patient's brother, Chester to set up services like medication management and case management. ERMA contacted Chester to provide update and Chester states he heard from [facility] this afternoon about getting services set up. ERMA advised Chester Black would call tomorrow about getting patient set up with a primary care physician. ERMA provided Chester with her contact information in case he doesn't hear from Sofia tomorrow. Chester will be here to pickling operator patient today at 1730. ERMA spoke with Demetri Mohr, hospital admissions officer to provide update on discharge plan and also emailed Cole Mendez, Abebe Navarro, and Simona Morrison (Risk Management) to provide update in discharge plan. ERMA collaborated the above information to Carly JUAREZ and to Andreina KHAN.
--- NOTE | 2020-09-21 17:40 | NUR ---
Patient is discharging home. PICC line discontinued. Discharge instructions discussed with patient. Explained when her follow up appointments are. Explained that one of the appointments she needs to call [facility] for her follow up. No questions verbalized. Explained she has prescriptions to bean picker at [facility]. Copies of discharge instructions sent with patient. Neida RITCHIE spoke with the brother and also explained the discharge plan. Patient walked out with Merna DIAZ.
--- NOTE | 2020-09-22 13:50 | NUR ---
Sofia from [facility] called to follow up and advised Dr. Horton as accepted patient for primary care.
== END 2020-09-21 17:45 | disposition home or self-care (01) | DRG 208 ==
LOC: COL.ER 04:14 → ICU 08:29 → MEDICAL 08-30 12:20 → JCC 09-06 16:20 → SURG 09-10 03:41 → MEDICAL 09-16 15:16 → SURG 09-21 17:45
PROVIDERS: Emergency Medicine; Hospitalist; Internal Medicine Critical Care Medicine; Internal Medicine Pulmonary Disease; Physician Assistant; Student in an Organized Health Care Education/Training Program; ADMIT Internal Medicine
PROC: 0BH17EZ Insertion of Endotracheal Airway into Trachea, Via Natural or Artificial Opening (ICD-10-PCS; principal; 2020-08-23)
PROC: 02HV33Z Insertion of Infusion Device into Superior Vena Cava, Percutaneous Approach (ICD-10-PCS; 2020-08-23)
PROC: 5A1935Z Respiratory Ventilation, Less than 24 Consecutive Hours (ICD-10-PCS; 2020-08-23)
PROC: 5A1945Z Respiratory Ventilation, 24-96 Consecutive Hours (ICD-10-PCS; 2020-08-26)
DX: J96.01 Acute respiratory failure with hypoxia (principal); G93.41 Metabolic encephalopathy; I21.A1 Myocardial infarction type 2; E43 Unspecified severe protein-calorie malnutrition; J44.1 Chronic obstructive pulmonary disease with (acute) exacerbation; J98.11 Atelectasis; J90 Pleural effusion, not elsewhere classified; F05 Delirium due to known physiological condition; I50.22 Chronic systolic (congestive) heart failure; G93.1 Anoxic brain damage, not elsewhere classified; N17.9 Acute kidney failure, unspecified; N39.0 Urinary tract infection, site not specified; F32.9 Major depressive disorder, single episode, unspecified; F17.210 Nicotine dependence, cigarettes, uncomplicated; F10.20 Alcohol dependence, uncomplicated; G40.909 Epilepsy, unspecified, not intractable, without status epilepticus; I25.10 Atherosclerotic heart disease of native coronary artery without angina pectoris; E03.9 Hypothyroidism, unspecified; Z20.822 Contact with and (suspected) exposure to COVID-19; I11.0 Hypertensive heart disease with heart failure; F43.10 Post-traumatic stress disorder, unspecified; F60.9 Personality disorder, unspecified; E87.6 Hypokalemia; E83.42 Hypomagnesemia; E04.1 Nontoxic single thyroid nodule; R33.9 Retention of urine, unspecified; E11.649 Type 2 diabetes mellitus with hypoglycemia without coma; Z88.6 Allergy status to analgesic agent
CPT/HCPCS: 99223-AI; 99231-AI; 99232-AI; 99233-AI; 99239; C1751; C9113; C9254; J0360; J0696; J1630; J1650; J1953; J2060; J2704; J2920; J3010; J3411; J3475; J3480; J7030; J7040; J7042; J7050; Q9967

== ENCOUNTER 2020-10-11 23:29 | Emergency (ER) | payer MEDICARE, MEDICAID ==
[~2020-10-11] VITALS: Ht 170.2 cm; Wt 68.2 kg
[~2020-10-11 23:29] MED LIST changes: +00186-0370-20 IH; +ASPIRIN 81M81 MG/TA2 PO; +ATARAX 25MG25 MG/TAB PO; +COMBIRESP IH; +DESYREL 100MG100 MG PO; +DINO-LIFE1 CTB PO; +KAPSPARGO SPRIN25 MG PO; +KEPPRA 500MG500 MG PO; +LAMICTAL 100MG100 MG PO; +LYRICA200 MG PO; +PAXIL 20MG20 MG PO; +PAXIL40 MG PO; +PLETAL 100MG T100 MG PO; +PRILOSEC 20MG20 MG PO; +SEROQUEL 1100 MG/TAB PO; +VIMPAT100 MG PO; +ZYPREXA 5MG5 MG PO
[2020-10-11 23:34] VITALS: TEMP 97.8
[2020-10-12 02:35] VITALS: BP 129/74; PULSE 118
== END 2020-10-12 02:35 | disposition short-term general hospital (02) ==
LOC: COL.ER 23:29
DX: M48.02 Spinal stenosis, cervical region (principal); J44.9 Chronic obstructive pulmonary disease, unspecified; G40.909 Epilepsy, unspecified, not intractable, without status epilepticus; F31.9 Bipolar disorder, unspecified; I50.9 Heart failure, unspecified; F17.210 Nicotine dependence, cigarettes, uncomplicated; Z20.822 Contact with and (suspected) exposure to COVID-19; Z88.6 Allergy status to analgesic agent; Z79.82 Long term (current) use of aspirin; Z79.51 Long term (current) use of inhaled steroids; W10.9XXA Fall (on) (from) unspecified stairs and steps, initial encounter
CPT/HCPCS: J1885; J3010

== ENCOUNTER 2020-11-12 14:57 | Emergency (ER) | payer MEDICARE ==
[~2020-11-12] VITALS: Ht 167.6 cm; Wt 54.5 kg
[2020-11-12 15:06] VITALS: TEMP 99
[2020-11-12 15:46] LABS: ALANINE AMINOTRANSFERASE 23 U/L (4-34); ALBUMIN 4.4 gm/dL (3.5-5.0); ALKALINE PHOSPHATASE 116 U/L (50-136); ANION GAP 8 mmol/L (7-16); AST,SGOT 34 U/L (15-37); BILIRUBIN,TOTAL 0.6 mg/dL (0.0-1.0); BLOOD UREA NITROGEN 8 mg/dL (7-17); CALCIUM 9.9 mg/dL (8.4-10.2); CARBON DIOXIDE 26 mmol/L (22-30); CHLORIDE 106 mmol/L (98-107); CREATININE, serum 0.74 (0.52-1.25); GLUCOSE 126 mg/dL (74-106); LIPASE 83 U/L (23-300); SODIUM 141 mmol/L (137-145); TOTAL PROTEIN 7.4 gm/dL (6.4-8.2)
[2020-11-12 15:48] LABS: INR 1.2 (0.8-3.0); POTASSIUM 2.7 mmol/L (3.4-5.0); PROTHROMBIN TIME 13.2 SECONDS (9.7-12.8)
[2020-11-12 15:49] LABS: BASO # 0.1 (0.0-0.2); BASO % 0.6 % (0.0-2.0); EOS # 0.2 (0.0-0.7); EOS % 2.1 % (0-4.0); GRAN # 4.1 (1.4-6.5); HEMATOCRIT 39.3 % (37.0-47.0); HEMOGLOBIN 13.3 g/dl (12.5-16.0); LYMPH # 3.2 (1.2-3.4); MEAN CELL VOLUME 89 fl (80.0-100.0); MEAN CORPUSCULAR HEMOGLOBIN 30 pg (27.0-31.0); MEAN CORPUSCULAR HGB CONC 34 g/dl (33.0-37.0); MEAN PLATELET VOLUME 11.4 fl (7.4-10.4); MONO % 12.2 % (1.7-9.3); PLATELET COUNT 274 K/mm3 (130-400); RED BLOOD COUNT 4.43 M/mm3 (4.10-5.30); REDCELL DISTRIBUTION WIDTH-CV 12.6 % (11.5-14.5)
[2020-11-12 15:51] LABS: PARTIAL THROMBOPLASTIN TIME 33.7 SECONDS (26.0-37.0)
[2020-11-12 16:01] LABS: TROPONIN-I < 0.012 ng/mL (0.000-0.035)
[2020-11-12 17:15] VITALS: BP 125/91; PULSE 107
== END 2020-11-12 17:18 | disposition home or self-care (01) ==
LOC: COL.ER 14:57
PROVIDERS: Nurse Practitioner
DX: F41.9 Anxiety disorder, unspecified (principal); M48.02 Spinal stenosis, cervical region; R06.02 Shortness of breath; R42 Dizziness and giddiness; J44.9 Chronic obstructive pulmonary disease, unspecified; G40.909 Epilepsy, unspecified, not intractable, without status epilepticus; Z88.8 Allergy status to other drugs, medicaments and biological substances; Z88.6 Allergy status to analgesic agent; Z79.82 Long term (current) use of aspirin; Z79.51 Long term (current) use of inhaled steroids
CPT/HCPCS: J7030

== ENCOUNTER 2020-11-18 12:58 | Emergency (ER) | payer MEDICARE ==
[~2020-11-18] VITALS: Ht 167.6 cm; Wt 59.1 kg
[2020-11-18 12:59] VITALS: TEMP 97.9
[2020-11-18 14:24] LABS: COLLECTION METHOD CLEAN CATCH
[2020-11-18 14:25] LABS: BASO # 0.1 (0.0-0.2); BASO % 0.6 % (0.0-2.0); EOS # 0.3 (0.0-0.7); EOS % 3.5 % (0-4.0); GRAN # 3.4 (1.4-6.5); GRAN % 40.8 % (42.2-75.2); HEMATOCRIT 38.4 % (37.0-47.0); HEMOGLOBIN 12.9 g/dl (12.5-16.0); LYMPH # 3.6 (1.2-3.4); LYMPH % 43.6 % (20.0-51.0); MEAN CELL VOLUME 91 fl (80.0-100.0); MEAN CORPUSCULAR HEMOGLOBIN 31 pg (27.0-31.0); MEAN CORPUSCULAR HGB CONC 34 g/dl (33.0-37.0); MEAN PLATELET VOLUME 10.9 fl (7.4-10.4); MONO % 11.4 % (1.7-9.3); PLATELET COUNT 282 K/mm3 (130-400); RED BLOOD COUNT 4.21 M/mm3 (4.10-5.30); REDCELL DISTRIBUTION WIDTH-CV 12.5 % (11.5-14.5)
[2020-11-18 14:33] LABS: AMORPHOUS CRYSTAL Present /uL; MUCOUS Present /lpf; PH 5 (5-8); SQUAMOUS EPITHELIAL >50 /hpf; URINE APPEARANCE Turbid; URINE BACTERIA Moderate /hpf; URINE BILIRUBIN Negative (NEGATIVE); URINE BLOOD 1+ (NEGATIVE); URINE COLOR Amber; URINE GLUCOSE Negative (NEGATIVE); URINE KETONE Negative (NEGATIVE); URINE LEUKOCYTE ESTERASE 2+ (NEGATIVE); URINE NITRATE Negative (NEGATIVE); URINE PROTEIN(semi-quant) 1+ (NEGATIVE); URINE WBC 20-50 /hpf
[2020-11-18 14:38] LABS: ALANINE AMINOTRANSFERASE 17 U/L (4-34); ALBUMIN 3.8 gm/dL (3.5-5.0); ALKALINE PHOSPHATASE 110 U/L (50-136); ANION GAP 7 mmol/L (7-16); AST,SGOT 29 U/L (15-37); BILIRUBIN,TOTAL 0.3 mg/dL (0.0-1.0); BLOOD UREA NITROGEN 28 mg/dL (7-17); CALCIUM 9.2 mg/dL (8.4-10.2); CARBON DIOXIDE 28 mmol/L (22-30); CHLORIDE 104 mmol/L (98-107); CREATININE, serum 0.87 (0.52-1.25); GLUCOSE 117 mg/dL (74-106); POTASSIUM 3.2 mmol/L (3.4-5.0); SODIUM 139 mmol/L (137-145); TOTAL PROTEIN 6.5 gm/dL (6.4-8.2)
[2020-11-18 14:39] LABS: ACETAMINOPHEN < 10 ug/mL (10-30); ALCOHOL(ethanol),MEDICAL < 10 mg/dL; SALICYLATE < 1.0 mg/dL
[2020-11-18 14:47] LABS: TRICYCLIC ANTIDEPRESS URINE NEGATIVE
[2020-11-18 19:40] VITALS: BP 113/74; PULSE 78
== END 2020-11-18 19:40 | disposition home or self-care (01) ==
LOC: COL.ER 12:58
PROVIDERS: Nurse Practitioner Primary Care
DX: R44.0 Auditory hallucinations (principal); F41.9 Anxiety disorder, unspecified; J44.9 Chronic obstructive pulmonary disease, unspecified; G40.909 Epilepsy, unspecified, not intractable, without status epilepticus; I11.0 Hypertensive heart disease with heart failure; F17.210 Nicotine dependence, cigarettes, uncomplicated; Z20.822 Contact with and (suspected) exposure to COVID-19; Z88.8 Allergy status to other drugs, medicaments and biological substances; Z88.6 Allergy status to analgesic agent; Z79.82 Long term (current) use of aspirin; Z79.51 Long term (current) use of inhaled steroids